=== PATIENT | female | born 1995 | race Caucasian/White ===

== ENCOUNTER 2024-12-14 08:54 | Emergency (ER) | payer BC, SELFPAY ==
[2024-12-14 09:01] VITALS: BP 125/85; PULSE 90; RESP 16; TEMP 36.6; O2SAT 100
--- OUTSIDE RECORDS SUMMARY | 2024-12-14 09:10 | XMS_ITS | Clinical Summary ---
Author Organization [facility] Address [address] [place] [address] Care Team Providers Care Subject Scientific Research Name Role Phone Cammy Green MRI SUPERVISOR-PLUMBING ENGINEERING DRAFTSPERSON Primary C are Provider Yenni Dey MRI SUPERVISOR-PLUMBING ENGINEERING DRAFTSPERSON Unavailable [phone] Source Comments [facility],non-owned Affiliates and Associated Physician Practices is amultiple site organization consisting of ambulatory clinics and hospital sitesin [place], [place], [place] and [place]. This disclosure is being madepursuant to the Care Everywhere program and may not contain all information available regarding this patient. Last updated 18.[facility] Allergies No known active allergies Medications * This document contains information received from the source organization and may not represent a complete record from that organization. * Be aware that medications may not be up to date on this document. Alwaysverify current medications with the patient. fluticasone propionate (Flonase) 50 MCG/ACT nasal sprayIndications :Nasal congestion [place] 2 (two) sprays into each nostril once daily 16 g 06/12/2022 Active escitalopram (Lexapro) 10 MG tabletIndication s:Anxiety and depression Take 1 (one) tablet by mouth once daily 90 tablet 1 06/02/2023 Active hydrOXYzine HCl (Atarax) 25 MG tabletIndication s:Anxiety and depression,Insom edwin, unspecified type Take 1 (one) tablet by mouth 3 times daily as needed (Anxiety) 90 tablet 06/02/2023 Active Active Problems Problem Noted Date Diagnosed Date Anxiety and depression 02/13/2023 Muscle spasm of back 02/13/2023 Family History Medical History Relation Name Comments Schizophrenia Father Diabetes; unknown type Maternal Grandfather Parkinson's Disease Maternal Grandfather CAD (Coronary Artery Disease) Maternal Grandmother Cancer - Breast Maternal Grandmother Diabetes - Type 2 Maternal Grandmother Diabetes; unknown type Maternal Grandmother Anxiety Disorder Mother Bipolar Disorder Mother Depression Mother Relation Name Status Comments Father Alive Maternal Grandfather Maternal Grandmother Mother Alive Social History Tobacco Use Types Packs/Day Years Used Date Smoking Tobacco: Former Cigarettes Smokeless Tobacco: Never Tobacco Cessation:Counseling Given: Not Answered Alcohol Use Standard Drinks/Week Comments Yes 0 (1 standard drink = 0.6 oz pur e alcohol) Rarely PHQ-2 Answer Date Recorded Patient Health Questionnaire-2 Score 2 06/02/2023 Comments No Sex and Gender Information Value Date Recorded Sex Assigned at Not on file Legal Sex Female 11:34 AM COMMUNICATIONS EQUIPMENT OPERATOR Gender Identity Female 05/15/2023 12:39 PM COMMUNICATIONS EQUIPMENT OPERATOR Sexual Orientation Bisexual 05/15/2023 12 :39 PM COMMUNICATIONS EQUIPMENT OPERATOR Last Filed Vital Signs Vital Sign Reading Time Taken Comments Blood Pressure 120/68 06/02/2023 3:37 PM COMMUNICATIONS EQUIPMENT OPERATOR Pulse 70 06/02/2023 3:37 PM COMMUNICATIONS EQUIPMENT OPERATOR Temperature 37 C (98.6 F) 06/02/2023 3:37 PM COMMUNICATIONS EQUIPMENT OPERATOR Respiratory Rate 20 06/02/2023 3:37 PM COMMUNICATIONS EQUIPMENT OPERATOR Oxygen Saturation 99% 06/02/2023 3:37 PM COMMUNICATIONS EQUIPMENT OPERATOR Inhaled Oxygen Concentration 96% 10/18/2021 1 0:25 AM CDT Weight 71.2 kg (157 lb) 06/02/2023 3:37 PM COMMUNICATIONS EQUIPMENT OPERATOR Height 147.3 cm (4' 10) 06/02/2023 3:37 PM COMMUNICATIONS EQUIPMENT OPERATOR Body Mass Index 32.81 06/02/2023 3:37 PM COMMUNICATIONS EQUIPMENT OPERATOR Plan of Treatment Health Maintenance Due Date Last Done Comments DTAP/TDAP/TD VACCINES (1 - Tdap) 2016 COVID-19 VACCINE ( season) 2024 DEPRESSION SCREENING 05/11/2024 06/02/2023, 03/09/2023, 02/13/2023, Additional history exists PAP SMEAR 05/14/2024 05/14/2021 (Done Outside Per Patient), 05/11/2021 (Done Outside Per Patient) HPV VACCINE (1 - 3-dose SCDM series) 2024 INFLUENZA VACCINE (#1) 2025 ZOSTER VACCINE (1 of 2) 10/05/2047 HEPATITIS B VACCINE Discontinued HEPATITIS C SCREENING Discontinued HIB VACCINE Aged Out No longer eligi ble based on patient's age to complete this topic HIV SCREENING Discontinued MENINGOCOCCAL (Group B) VACCINE SHARED DECISION-MAKING Aged Out No longer eligible based on patient's age to complete this topic MENINGOCOCCAL GROUPS A/C/Y/W VACCINE Aged Out No longer eligible based on patient's age to complete this topic PNEUMOCOCCAL VACCINE Aged Out No long er eligible based on patient's age to complete this topic Insurance [facility] MED[employer]ID [facility] MEDICAID MEDICAID MEDICAID Care Teams Subject Scientific Research Relationship Specialty Start Date End Date Cammy Green APRN-PLUMBING ENGINEERING DRAFTSPERSON [address] [id number] PCP - General Nurse Practitioner Family 03/09/23 Yenni Dey APRN-PLUMBING ENGINEERING DRAFTSPERSON [address] [place] [address] Nurse Practitioner Family 02/13/23
--- OUTSIDE RECORDS SUMMARY | 2024-12-14 09:10 | XMS_ITS | Clinical Summary ---
Author Organization [facility] Care Team Providers Care Mentally Impaired Teacher Name Role Phone Unavailable Primary Care Provider Unavailabl e Social History Tobacco Use Types Packs/Day Years Used Date Smoking Tobacco: Never Assessed Comments Unknown Sex and Gender Information Value Date Recorded Sex Assigned at Not on file Legal Sex Female 4:01 PM VEST BASTER Gender Identity Not on file Sexual Orientation Not on file Plan of Treatment Health Maintenance Due Date Last Done Comments Hepatitis C Virus (HCV) Screening 1997 TdaP Immunization 1997 Hepatitis B Immunization (1 of 3 - 19+ 3-dose series) 2016 SARS-COV-2 Immunization ( - season) 2024 Human Papillomavirus (HPV) Immunization (1 - 3-dose SCDM series) 2024 Influenza Immunization (#1) 2025 Respiratory Syncytial Virus (RSV) Immunization (Adult) (1 - 1-dose 75+ series) 2072 Meningococcal Immunization (ACWY) Aged Out No longer eligible based on patient's age to complete this topic Pneumococcal Immunization Combined Aged Out No longer eligible based on patient's age to complete this topic Rotavirus Immunization Aged Out No lo nger eligible based on patient's age to complete this topic
[2024-12-14 09:16] LABS: EDSTREPNEGPOS1 Negative (Negative)
--- NOTE | 2024-12-14 09:17 | ED_ITS ---
HPI - URI/Sore Throat General Chief Complaint: Upper Respiratory Infection Stated Complaint: Sore throat / Bilateral Ear Pain Time Seen by Provider: 12/14/24 08:59 Source: patient Mode of arrival: ambulatory Limitations: no limitations History of Present Illness HPI Narrative: Patient is a 29-year-old female who presents with 2 days of tonsil pain and swelling, primarily the right, sore throat and ear pain. Patient states she got multiple tonsil stones out this morning and her tonsils started bleeding. Has not taken anything for symptoms. Denies any fever, chills, nausea, vomiting, diarrhea. History of tubes in ears as child Related Data Allergies Allergy/AdvReac Type Severity Reaction Status Date / Time No Known Allergies Allergy Verified 12/14/24 09:07 Review of Systems Review of Systems: All systems reviewed & are unremarkable except as noted in HPI and below Constitutional: Constitutional: Denies chills, Denies fatigue, Denies fever(s), Denies headache(s), Denies malaise and Denies weakness Eyes: Eyes: Denies blurry vision, Denies itchy eyes and Denies loss of vision ENT: Reports otalgia, Denies headache(s), Denies nasal congestion, Denies sinus pain and Reports sore throat Cardiovascular: Cardiovascular: Denies chest pain, Denies irregular heart rhythm and Denies dyspnea Respiratory: Respiratory: Reports cough and Denies dyspnea Gastrointestinal: Gastrointestinal: Denies abdominal pain, Denies diarrhea, Denies nausea and Denies vomiting Musculoskeletal: Musculoskeletal: Denies back pain, Denies myalgias and Denies arthralgias Integumentary/Breasts: Skin/Breast: Denies pruritus and Denies rash Neurologic: Denies headache(s), Denies loss of vision and Denies weakness Psychiatric: Psychiatric: Reports no additional psychiatric complaints Endocrine: Endocrine: Denies fatigue Allergic/Immunologic: Allergic/Immunologic: Denies itchy eyes PMFSH Comments At time of signature, agree with nursing past medical, surgical, social and family history. There is no relevant family history pertinent to the presenting complaint. Exam Const: General: cooperative, healthy appearing, comfortable, no acute distress and well nourished Nutritional Appearance: well nourished Orientation/consciousness: patient oriented x3 Limitations: no limitations HENMT: Head: normal to inspection, normocephalic and atraumatic Ears: h earing grossly normal bilaterally, external ears normal, TM's normal bilaterally, EAC's normal and no periauricular adenopathy Face/Nose/Sinus: Normal external nose present, Abnormal mucous membranes and turbinates present erythematous bilateral and diffuse, normal facial exam, sinuses nontender and face symmetric Face and sinus: normal facial exam, sinuses nontender and face symmetric Mouth: Yes Normal oral and palatal mucosa present, Yes lip normal, Yes tongue normal, Yes Normal salivary glands and ducts present, Yes oropharynx normal and Yes moist mucous membranes Teeth and gingiva: dentition normal Throat: uvula midline, abnormal tonsil on the right (tonsil stone) and bilateral erythema and hypertrophy 1+, posterior oropharynx abnormal erythema and postnasal drainage Eyes: General: appearance normal, both eyes and all related structures Alignment and Position: alignment normal and position normal Periorbital: periorbital findings normal Eyelids: eyelids normal Pupils: Equal, round and reactive pupils present Neck: Neck: normal visual inspection, full ROM, no lymphadenopathy and supple Chest: Chest palpation & inspection: normal inspection of the chest and normal palpation of entire chest wall Resp: Effort & Inspection: normal respiratory effort and able to speak in complete sentences Auscultation: clear to auscultation bilaterally, no crackles, no rales, no rhonchi and no wheezes Cardio: Rate: regular rate Rhythm: regular rhythm Heart sounds: S1 normal heart sound present and S2 normal heart sound present GI: Inspection: normal to inspection Skin: General skin exam: normal color and no rashes or lesions noted Neuro: General: patient oriented x3 and moves all extremities Cranial nerves: Yes Equal, round and reactive pupils present Speech: normal speech Gait exam (Neuro): Normal gait present Extrem: General: normal to inspection, full ROM and no edema Psych: Appearance: grossly normal and well kempt Mental Status: mental status grossly normal Speech and movement: Normal speech and movement present Affect: normal affect Attitude: cooperative Thought process: Normal thought process present Course Course Emergency Course: Discharge instructions reviewed with patient, as well as provided in writing per nursing staff. The instructions also include specific and strict return/GO TO THE ER as well as f/u information. All questions have been answered, and the patient deny any further questions with discharge and discharge plan. Portions of this record may have been created with voice recognition software Level of Care: Express Care Visit Vital Signs Vital signs: Vital Signs Temperature 36.6 C 12/14/24 09:01 Pulse Rate 90 12/14/24 09:01 Respiratory Rate 16 12/14/24 09:01 Blood Pressure 125/85 12/14/24 09:01 Pulse Oximetry 100 12/14/24 09:01 Oxygen Delivery Room Air 12/14/24 09:01 Temperature 36.6 C 12/14/24 09:01 Pulse Rate 90 12/14/24 09:01 Respiratory Rate 16 12/14/24 09:01 Blood Pressure 125/85 12/14/24 09:01 Pulse Oximetry 100 12/14/24 09:01 Oxygen Delivery Room Air 12/14/24 09:01 Reviewed MDM - URI/Sore Throat MDM Narrative Medical decision making narrative: Pt well hydrated appearing, in no respiratory distress, hemodynamically stable. Recommend supportive care. The patient is stable at time of discharge the clinical impression was discussed and the patient was given the opportunity to ask questions, which were addressed as completely as possible given the information available at present. Anticipatory guidance and return to care precautions were discussed and the importance of primary care follow-up was stressed and encouraged. The patient voiced understanding of the plan, indications to return, and the need for follow-up. Exam findings show no acute concerns or changes Patient is appropriate for outpatient treatment and follow-up. Differential diagnosis considered: Win virus, strep pharyngitis, allergic rh initis, upper respiratory tract infection, sinusitis, rhinosinusitis, nasopharyngitis. viral pharyngitis, otitis media, otitis externa, otitis effusion, foreign body, cerumen impaction, viral syndrome, and influenza.? Medical Records Attestation: I reviewed the patient's medical records. Lab Data Attestation: I reviewed the patient's lab results. Labs: Lab Results 12/14/24 Range/Units 09:04 POC Grp A Strep Screen Negative (Negative) Discharge Plan Discharge Clinical Impression: Upper respiratory infection Qualifiers: URI type: unspecified viral URI Qualified Code(s): J06.9 - Acute upper respiratory infection, unspecified Patient Disposition: Home Condition: Stable Instructions: Upper Respiratory Infection (ED) Additional Instructions: Your rapid strep swab was negative today at [facility]. A throat culture will be sent to the laboratory for further testing. If the test is positive, you will receive a phone call within 48 hours and an appropriate antibiotic will be initiated at that time. Your symptoms are likely due to a viral illness, which is not treated with antibiotics. Viral symptoms can be present for up to a few weeks. -For pain/fever, you may take: Tylenol 650-1000mg by mouth every 4-6 hours. Do not exceed 4000mg in 24 hours. Advil (Ibuprofen) 600 mg by mouth every 6 hours. Do not exceed 2400mg in 24 hours. 8 AM: Tylenol 11 AM: Ibuprofen 2 PM: Tylenol 5 PM: Ibuprofen 8 PM: Tylenol 11 PM: Ibuprofen 2 AM: Tylenol 5 AM: Ibuprofen -Antihistamine medication such as Benadryl/Zyrtec at night and Claritin/Alexandra during the day can help improve symptoms. -Use Flonase twice a day for 5 days then daily to help reduce the inflammation and dry up your sinuses. -You can also use Sudafed behind the pharmacy counter(12 or 24 hour). Be sure to drink plenty of water with these medications at least 8 ounces with every dose and it is important to drink 8 to 10 glasses of water per day. Water is a natural decongestant -Eat and drink things that are easy to swallow, like tea or soup, or popsicles. -Oral rinses such as: Salt water gargles and/or may use topical anesthetic (eg. Chloraseptic spray) or lozenges to relieve dryness or throat pain). -Frequent hand washing or hand ironworker is one of the best ways to prevent spread of infection. -Using a vaporizer or humidifier at night will also help thin secretions and help with coughing up phlegm. Call your Primary Care Doctor and make a follow-up appointment in 3 days. If your cough worsens, you develop a fever greater than 103, you develop shaking chills, a fast heartbeat, trouble breathing and/or feel you are are breathing much faster than usual, call your Primary Care Doctor or go to the ER. Patient Language: Mongolian Prescriptions: New benzonatate 100 mg capsule 100 mg PO BID PRN (Reason: cough) Qty: 14 0RF fluticasone propionate [Flonase Allergy Relief] 50 mcg/actuation spray,suspension 1 spray intranasal DAILY Qty: 16 0RF Rx Instructions: administer into each nostril Follow-up/Referrals: Dimitry Boles MD [Primary Care Provider] - 3 Days Stand Alone Forms: Work/School Release IP Time of Disposition: 09:19
== END 2024-12-14 09:22 | disposition home or self-care (01) ==
PROVIDERS: Emergency Provider Nurse Practitioner Family; PCP Emergency Medicine
DX: J06.9 Acute upper respiratory infection, unspecified (principal)
CPT/HCPCS: 87081; 87880; 99203; G0463

== ENCOUNTER 2025-03-10 13:22 | Emergency (ER) | payer BC, SELFPAY ==
--- OUTSIDE RECORDS SUMMARY | 2025-03-10 13:25 | XMS_ITS | Data Portability ---
Author Organization [employer] , [facility] Address [address] [place] [address] Assessment No assessment recorded. Plan of Treatment Reminders Order Date Submit Date Provider Last Modified By Organization Details Last Modified Time Details Appointments None recorded. Lab bacterial vaginosis + vaginitis panel, vaginal 2024 025 [employer], [address] [place], [address], 5 16:30:54 test, urine 2023 024 [facility], [address] [place], [address], 4 11:00:47 HPV E6+E7 mRNA, qualitative PCR, cervix 2023 024 [employer] [facility] [employer] [facility], [address] [place], [address], 4 16:25:12 pap, LB 2023 024 [employer] [facility], [address] [place], [address], 4 15:56:04 prolactin, serum 2021 022 [employer] [facility], [address] [place], [address], 2 09:58:00 TSH, serum or plasma 2021 022 [employer] [facility], [address] [place], [address], 09:58:01 lh + FSH, serum [address] [facility], [address] [place], [address], 09:58:01 testosteron e, total, serum [address] [facility], [address] [place], [address], 09:58:02 testosteron e, free, serum [address] [facility], [address] [place], [address], 09:58:02 progesteron e, serum [address] [address] [facility], [address] [place], [address], 09:57:59 estradiol, serum [address] [facility], [address] [place], [address], 09:58:00 test, urine 2021 0 [facility], [address], [place], [address], 16:22:58 CT + NG DNA, PCR, unspecified specimen 2021 [facility], [address] [place] [address], [address], 09:20:49 unlisted lab - Pap reflex hold 2021 [facility], [address] [place] [address], [address], 2 09:20:45 pap, LB 2021 [facility], [address] [facility], [place], [address], 2 09:57:59 Referral reproductiv e endocrinolo gist referral 2023 024 [facility] Danis Means, [address] [facility], [address], [place], [address], 5 13:54:07 Procedures None recorded. Surgeries None recorded. Imaging US, transvagina l 2021 [facility], 1 [facility], [place], [address], 2 13:46:00 Medication Orders Xulane 150 mcg-35 mcg/24 hr transdermal patch 2024 025 [facility], [address] [place], [address], 5 15:22:22 Xulane 150 mcg-35 mcg/24 hr transdermal patch 2024 025 [facility], [address] [place], [address], 5 11:55:29 Xulane 150 mcg-35 mcg/24 hr transdermal patch 2023 024 [facility], [address] [place], [address], 4 11:00:53 Provera 10 mg tablet [id number] [place] [address] [id number], [address], [place], [id number], 5 11:29:46 Phexxi 1.8 %-1 %-0.4 % vaginal gel 2021 022 [email or web address] [id number], [address] [place], [id number], 11:29:55 Patient TargetsNo targets recorded. 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 Referral for Premature ovarian failure Referring Physician: Tracie Ochoa, INDEPENDENT V[employer]ODUCER, Encounter Date: 04/11/2024 Results Created Date Observation Date Name Description Value Unit Range Abnormal Flag Note LastModifiedBy Organization Detail LastModifiedTime 02/20/2002/19/2022 PAP REFLE X HOLD Pap reflex hold Merged to [id number] Not Available [facility] ol [address] [place], [address], 02/20/2022 09:20:45 02/20/2002/20/2022 PAP REFLE X HOLD Pap reflex hold Receiv ed receiv ed Not Available [facility] [address] [place], [address], 02/20/2022 09:20:49 02/20/2002/20/2022 CT/NG chlamydia trachomatis CT neg negati ve normal This repor t is inten ded for us in clini karen monit oring and manag ement of patie nts. It is not inten ded for use in medic al-le gal appli catio n. Not Available [facility] [address] [place], [address], 02/20/2022 13:39:00 02/20/2002/20/2022 CT/NG neisseria gonorrhoeae GC neg negati ve normal This repor t is inten ded for us in clini karen monit oring and manag ement of sanket nts. It is not inten ded for use in medic al-le gal appli catio n. Not Available [facility] [address] [place], [address], 02/20/2022 13:39:00 02/20/2002/27/2022 THINP REP TIS PAP clinical information: normal None given Not Available [place] [address] [address] [place], [address], 02/27/2022 09:57:59 02/20/2002/27/2022 THINP REP TIS PAP LMP: normal NONE GIVEN Not Available [address], [address], 02/27/2022 09:57:59 02/20/2002/27/2022 THINP REP TIS PAP prev. Pap: normal NONE GIVEN Not Available [address] [place], [address], 02/27/2022 09:57:59 02/20/2002/27/2022 THINP REP TIS PAP prev. BX: normal NONE GIVEN Not Available [address] [place], [address], 02/27/2022 09:57:59 02/20/2002/27/2022 THINP REP TIS PAP source: normal Cervi x Not Available [address] [place], [address], 02/27/2022 09:57:59 02/20/2002/27/2022 THINP REP TIS PAP statement of adequacy: normal Satis facto ry for evalu ation . Endoc ervic al/tr ansfo rmati on zone compo nent prese nt. 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 Sugge st clini karen corre latio n and follo w-up as clini naomi appro priat e Koo porti ons of this case have been revie wed by one or more patho logis ts. Not Available [address], [place], [address], 02/27/2022 09:57:59 02/20/2002/27/2022 THINP REP TIS PAP cytotechnolo gist: normal YQ, CT( CP) CT scree pranay locat ion: [place] [address] [address] [place] [address] Not Available [address] [address] [place], [address], 02/27/2022 09:57:59 02/20/2002/27/2022 THINP REP TIS PAP pathologist: normal Catina trujillo M.D., Board Certi fied in Anato easton Patho logy and Cytop athol ogy. Phone : [phone] (elec troni c signa ture) Not Available [address] [address] [place], [address], 02/27/2022 09:57:59 02/20/2002/27/2022 THINP REP TIS PAP comment EXPLA NATOR Y NOTE: The Pap is a scree pranay test for cervi karen cance r. It is not a diagn ostic test and is subje ct to false negat anastasia and false posit anastasia resul ts. It is most relia ble when a satis facto ry sampl e, regul jermain obtai jasper, is submi tted with relev ant clini karen findi ngs and histo ry, and when the Pap resul t is evalu ated along with histo eleanor and curre nt clini karen infor matio n. Not Available [address] [address] [place], [address], 02/27/2022 09:57:59 02/20/2002/27/2022 PROGE STERO NE progesterone TNP TEST NOT PERFO RMED No serum recei abdoulaye. Not Available [address] [address] [place], [address], 02/27/2022 09:57:59 02/20/2002/27/2022 PROLA CTIN prolactin TNP TEST NOT PERFO RMED No serum recei abdoulaye. Not Available [address] [address] [place], [address], 02/27/2022 09:58:00 02/20/2002/27/2022 ESTRA DIOL estradiol TNP TEST NOT PERFO RMED No serum recei abdoulaye. Not Available [address] [address] [place], [address], 02/27/2022 09:58:00 02/20/2002/27/2022 TSH W/REF CHARIS TO FT4 TSH w/reflex to FT4 TNP TEST NOT PERFO RMED No serum recei abdoulaye. Not Available [address] [address] [place], [address], 02/27/2022 09:58:01 02/20/20 22 02/27/2022 FSH AND LH FSH TNP TEST NOT PERFO RMED No serum recei abdoulaye. Not Available [address] [address] [place], [address], 02/27/2022 09:58:01 02/20/20 22 02/27/2022 FSH AND LH LH TNP TEST NOT PERFO RMED No serum recei abdoulaye. Not Available [facility] [place] [address] [address] [place], [address], 02/27/2022 09:58:01 02/20/2002/27/2022 TESTO STERO NE, FREE testosterone , free TNP TEST NOT PERFO RMED No serum recei abdoulaye. Not Available [facility] [address] [address] [place], [address], 02/27/2022 09:58:02 02/20/2002/27/2022 TESTO STERO NE, TOTAL , MS testosterone , total, MS TNP TEST NOT PERFO RMED No serum recei abdoulaye. Not Available [address] [address] [place], [address], 02/27/2022 09:58:02 02/20/20 22 02/19/2022 pregn chano test, urine HCG negati ve Not Available [address], [place], [address], 02/19/2022 11:16:03 03/10/20 22 03/12/2022 PROGE STERO NE progesterone <0.5 NG/mL normal Refer ence Range s Femal e Folli cular Phase < 1.0 Lutea l Phase 2.6-2 1.5 Post menop ausal < 0.5 Pregn chano 1st Trime ster 4.1-3 4.0 2nd Trime ster 24.0- 76.0 3rd Trime ster 52.0- 302.0 Not Available [facility] [address] [address] [place], [address], 03/12/2022 23:56:36 03/10/20 22 03/12/2022 PROLA CTIN prolactin 7.9 NG/mL normal Refer ence Range Femal es Non-p regna nt 3.0-3 0.0 Pregn ant 10.0- 209.0 Postm enopa usal 2.0-2 0.0 Not Available [facility] [address] [place], [address], 03/12/2022 23:56:37 03/10/20 22 03/12/2022 ESTRA DIOL estradiol <15 pg/mL normal Refer ence Range Folli cular Phase : 19-14 4 Mid-C ycle: 64-35 7 Lutea l Phase : 56-21 4 Postm enopa usal: < or = 31 Refer ence range estab lishe d on post- puber bernardo patie nt popul ation . No pre-p ubert al refer ence range estab lishe d using this assay . For any patie nts for whom low Estra diol level s are antic ipate d (e.g. males , pre-p ubert al child susi and hypog onada l/pos t-men opaus al femal es), the [facility] Juan ls Insti tute Estra diol, Ultra sensi tive, LCMSM S assay is recom melina d (orde r code 15890 ). Pleas e note: patie nts being treat ed with the drug fulve stran t (Fasl odex( R)) have demon strat ed signi fican t inter feren ce in immun oassa y metho ds for estra diol measu remen t. The cross react ivity could lead to false ly eleva joel estra diol test resul ts leadi ng to an inapp ropri ate clini karen asses sment of estro gen statu s. [facility] order code 14702 -Estr adiol , Ultra sensi tive LC/MS /MS demon strat es negli gible cross react ivity with fulve stran t. Not Available [facility] [address] [place], [address], 03/12/2022 23:56:37 03/10/20 22 03/12/2022 TSH W/REF CHARIS TO FT4 TSH w/reflex to FT4 0.81 mIU/L normal Refer ence Range > or = 20 Years 0.40- 4.50 Pregn chano Range s First trime ster 0.26- 2.66 Secon d trime ster 0.55- 2.73 Third trime ster 0.43- 2.91 Not Available [facility] [address] [place], [address], 03/12/2022 23:56:38 03/10/20 22 03/12/2022 FSH AND LH FSH 62.3 mIU/m L normal Refer ence Range Folli cular Phase 2.5-1 0.2 Mid-c ycle Peak 3.1-1 7.7 Lutea l Phase 1.5- 9.1 Postm enopa usal 23.0- 116.3 Not Available [facility] [address] [place], [address], 03/12/2022 23:56:38 03/10/20 22 03/12/2022 FSH AND LH LH 18.8 mIU/m L normal Refer ence Range Folli cular Phase 1.9-1 2.5 Mid-C ycle Peak 8.7-7 6.3 Lutea l Phase 0.5-1 6.9 Postm enopa usal 10.0- 54.7 Not Available [facility] [address] [place], [address], 03/12/2022 23:56:38 03/10/20 22 03/12/2022 TESTO STERO NE, FREE testosterone , free 3.6 pg/mL 0.2-5. 0 (Note ) The adair ntrat ion of free testo stero ne is deriv ed from a andreas leiva model using total testo stero ne by LCMSM S, sex hormo ne jose ng globu nabila and album in. This test was devel oped and its alexia tical perfo rmanc e sabrina cteri stics have been deter mined by [facility]. It has not been clear ed or appro abdoulaye by the FDA. This assay has been valid ated pursu ant to the CLIA regul ation s and is used for clini karen purpo ses. F med fusio n [address] [facility] [address] [place] [address] [phone] Manoj lockwood MD Not Available [facility] [address] [place], [address], 03/12/2022 23:56:38 03/10/20 22 03/12/2022 TESTO STERO NE, TOTAL , MS testosterone , total, MS 13 NG/dL 2-45 For addit ional yanivr jorgito downey refer to https ://ed ucati on.[employer]/f aq/To bernardoYang ramy thutimothy MS S (This link is being provi ded for infor ya nal/e ducat ional purpo ses only. ) (Note ) This test was devel oped and its alexia tical perfo rmanc e sabrina cteri stics have been deter mined by [employer] [facility]. It has not been clear ed or appro abdoulaye by the FDA. This assay has been valid ated pursu ant to the CLIA regul ation s and is used for clini karen purpo ses. ALEXIS med fusio n [address] [facility] [address] [place] [address] [phone] Manoj lockwood MD Not Available [facility] [address] [address], [place], [address], 03/12/2022 23:56:39 04/11/20 24 04/12/2024 HPV HIGH RISK HPV high risk Negati ve negati ve normal The HPV High Risk assay is inten ded for use as co-te sting with cytol ogy and not as a subst itute for regul ar cervi karen cytol ogy scree pranay. This assay is not inten ded for use as a scree pranay devic e for women under age 30 with catina l cervi karen cytol ogy. Not Available [facility] [address] [place], [address], 04/12/2024 16:25:12 04/11/20 24 04/19/2024 THINP REP TIS PAP clinical information: normal None given Not Available [address] [address] [place], [address], 04/19/2024 15:56:04 04/11/20 24 04/19/2024 THINP REP TIS PAP LMP: normal NONE GIVEN Not Available [address] [address] [place], [address], 04/19/2024 15:56:04 04/11/20 24 04/19/2024 THINP REP TIS PAP prev. Pap: normal NONE GIVEN Not Available [address] [place], [address], 04/19/2024 15:56:04 04/11/20 24 04/19/2024 THINP REP TIS PAP prev. BX: normal NONE GIVEN Not Available [address] [address] [place], [address], 04/19/2024 15:56:04 04/11/20 24 04/19/2024 THINP REP TIS PAP source: normal Cervi x Not Available [address] [address] [place], [address], 04/19/2024 15:56:04 04/11/20 24 04/19/2024 THINP REP TIS PAP statement of adequacy: normal SATIS FACTO RY FOR EVALU ATION Parti ally obscu ring infla mmati on Not Available [address] [address] [place], [address], 04/19/2024 15:56:04 04/11/20 24 04/19/2024 THINP REP TIS PAP interpretati on/result: Cytol ogy Resul ts: Negat anastasia for intra epith elial lesio n or jas bañuelos . Atrop amelie barkley rn; keyonao sabine baileyy parab carli cells Not Available [address] [address] [place], [address], 04/19/2024 15:56:04 04/11/20 24 04/19/2024 THINP REP TIS PAP comment: normal This Pap test has been evalu ated with compu ter stephen joel techn ology . Not Available [address] [address] [place], [address], 04/19/2024 15:56:04 04/11/2004/19/2024 THINP REP TIS PAP cytotechnolo gist: normal PCM, CT( CP) CT Scree pranay Locat ion: [place] [address] [address] [place] [address] Not Available [address] [address] [place], [address], 04/19/2024 15:56:04 04/11/20 24 04/19/2024 THINP REP TIS PAP comment EXPLA NATOR Y NOTE: The Pap is a scree pranay test for cervi karen cance r. It is not a diagn ostic test and is subje ct to false negat anastasia and false posit anastasia resul ts. It is most relia ble when a satis facto ry sampl e, regul jermain obtai jasper, is submi tted with relev ant clini karen findi ngs and histo ry, and when the Pap resul t is evalu ated along with histo eleanor and curre nt clini karen infor matio n. Not Available [address] [address] [place], [address], 04/19/2024 15:56:04 04/11/20 24 04/11/2024 pregn chano test, urine HCG negati ve Not Available [facility] [address] [facility], [place], [address], 04/10/2024 18:37:49 06/01/19 25 06/03/2024 VAGIN ITIS PANEL bacterial vaginosis BV neg negati ve normal Not Available [facility] [address] [place], [address], 06/03/2024 16:30:54 06/01/19 25 06/03/2024 VAGIN ITIS PANEL marjorie species C. spp POS negati ve abnormal Not Available [facility] [address] [place] [address], [address], 06/03/2024 16:30:54 06/01/19 25 06/03/2024 VAGIN ITIS PANEL marjorie glabrata C. gla neg negati ve normal Not Available [address], [address], 06/03/2024 16:30:54 06/01/19 25 06/03/2024 VAGIN ITIS PANEL trichomonas vaginalis CV/TV TRICH neg negati ve normal Not Available [address], [address], 06/03/2024 16:30:54 04/15/20 22 04/14/2022 US pelvi c non OB comp ta+TV [facility] [place] [address] [facility] [address] [place] [address] EXAMIN ATION: Comple te pelvic sonogr am (non-o bstetr ic) with transv aginal ultras ound DATE:06/15/19 CLINIC AL HISTOR Y: 26 years female with histor y of primar y amenor jacinta. Gravid a 1 Para 0 LMP= no menstr ual period in last 10 years. Urine pregna ncy test: Not availa ble COMPAR TIANNA: No prior exam TECHNI QUE: Ultras ound examin ation of the pelvis was perfor med utiliz ing transa bdomin al and transv aginal approa ch to assess graysc ivone appear ance, color dopple r flow, and spectr al wavefo rm charac terist ics. FINDIN GS: Uterus : 4.3 cm No masses . Anteve rted Endome trial stripe : 2 mm in thickn ess. Cervix : Normal . Right ovary: 1.7 cm. Normal echoge nicity . Normal blood flow and spectr al analys is. No masses or pathol ogic cysts. Left ovary: 1.9 cm. Normal echoge nicity . Normal blood flow and spectr al analys is. No masses or pathol ogic cysts. Other findin gs: No free fluid is seen within the pelvis . Visibl e bladde r not adequa tely disten ded. IMPRES CHERYL: 1. No pelvic abnorm alitie s observ ed. Ordere d By: SUNITA BERGERON Electr onical ly Signed By: Cuong Gómez MD on 9:36 AM Interp reted By: Cuong Gómez MD, 9:30 AM [email or web address], [address], 04/16/2022 12:06:26 04/15/2004/14/2022 US, trans vagin al No observ ation record ed. [email or web address] [address], [address], 04/16/2022 12:08:19 Result Notes None recorded. Problems No Known Problems Procedures Surgical History Date Name Laterality Status Provider Name and Address Organization Details Recorded Time Date of Last Pap Smear completed DAMARIS Gonzalez [address] [place], [address], [facility] 05/09/2024 08:35:21 Removal of tonsils completed Jacqueline Dorado [facility] [employer] [facility] 02/19/2022 11:02:00 procedure on external ear completed Justin Anderson [facility] 06/01/2024 11:32:13 Imaging Results None recorded. Procedure Notes None recorded. Medical Equipment None Reported. Allergies No known drug allergies Medications Name Sig Start Date Stop Date Status Note LastModified by Organization Details LastModified Time cyclobenz aprine 10 mg tablet TAKE 1 TABLET BY MOUTH THREE TIMES DAILY NEEDED FOR MUSCLE SPASMS 02/19 completed Not Available Not Available Not Available medroxypr ogesteron e 10 mg tablet TAKE 1 TABLET BY MOUTH EVERY DAY AT BEDTIME 06/01 completed Not Available Not Available Not Available trazodone 50 mg tablet TAKE 1 TABLET BY MOUTH ONCE DAILY AT BEDTIME FOR MOOD/SLE EP active Not Available Not Available No t Available azithromy ulices 250 mg tablet TAKE DIRECTED 04/11 completed Not Available Not Available Not Available ibuprofen 800 mg tablet TAKE 1 TABLET BY MOUTH EVERY 8 HOURS NEEDED FOR PAIN 02/19 completed Not Available Not Available Not Available fluconazo le 150 mg tablet TAKE 1 TABLET BY MOUTH ONCE DAILY active Not Available Not Available No t Available valacyclo vir 1 gram tablet 06/01 completed Not Available Not Available Not Available ondansetr on HCl 4 mg tablet 06/01 completed Not Available Not Available Not Available prednison e 20 mg tablet TAKE 2 TABLETS BY MOUTH EVERY DAY FOR 5 DAYS 02/19 completed Not Available Not Available Not Available sulfameth oxazole 800 mg-trimet hoprim 160 mg tablet TAKE 1 TABLET BY MOUTH EVERY 12 HOURS 04/11 completed Not Available Not Available Not Available lamotrigi ne 25 mg tablet 06/01 completed Not Available Not Available Not Available Vitamin tablet 02/07 completed Multivit blanca RxNorm: 0 Allow Substitu tion: True Refill Denied: No Refill DateOccu rred: 04/22/20 18 Not Available Not Available Not Available methocarb sonido 750 mg tablet TAKE 1 TABLET BY MOUTH 3 TIMES PER DAY NEEDED FOR PAIN AND MUSCLE SPASM 02/19 completed Not Available Not Available Not Available benzonata te 100 mg capsule TAKE 2 CAPSULES BY MOUTH EVERY 8 HOURS NEEDED 06/01 completed Not Available Not Available Not Available fluoxetin e 10 mg capsule TAKE 1 CAPSULE BY MOUTH EVERY DAY FOR MOOD/DEP RESSION/ ANXIETY 02/19 completed Not Available Not Available Not Available hydroxyzi ne HCl 25 mg tablet TAKE 1 TABLET BY MOUTH THREE TIMES DAILY NEEDED FOR ANXIETY 06/01 completed Not Available Not Available Not Available methylpre dnisolone 4 mg tablets in a dose pack 04/11 completed Not Available Not Available Not Available ondansetr on 4 mg disintegr ating tablet 04/11 completed Not Available Not Available Not Available fluoxetin e 20 mg capsule TAKE 1 CAPSULE BY MOUTH ONCE DAILY active Not Available Not Available No t Available fluticaso ne propionat e 50 mcg/actua tion nasal spray,[place] pension SHAKE LIQUID AND USE 1 SPRAY IN EACH NOSTRIL DAILY 02/19 completed Not Available Not Available Not Available naproxen 500 mg tablet 06/01 completed Not Available Not Available Not Available amoxicill in 875 mg-potass ium clavulana te 125 mg tablet 04/11 completed Not Available Not Available Not Available escitalop noah 10 mg tablet TAKE 1 TABLET BY MOUTH EVERY DAY 06/01 completed Not Available Not Available Not Available cyclobenz aprine 5 mg tablet TAKE 1 TABLET BY MOUTH THREE TIMES DAILY active Not Available Not Available No t Available Xulane 150 mcg-35 mcg/24 hr transderm al patch Apply 1 patch every week by transder mal route as directed . active Not Available Not Available No t Available Phexxi 1.8 %-1 %-0.4 % vaginal gel Insert 1 applicat orful by vaginal route. 06/01 completed Not Available Not Available Not Available Vitals Date Recorded Body height Body mass index (BMI) Body weight Systolic And Diastolic Provider Name and Address Organization Details Last Updated DateTime 06/01/2024 147.32 cm 30.8 kg/m2 43507.52 g 100/70 mm[Hg] Justin Anderson [facility] 06/01/2024 11:24:55 Date Recorded Body height Body mass index (BMI) Body weight Systolic And Diastolic Provider Name and Address Organization Details Last Updated DateTime 06/06/2024 147.32 cm 31.3 kg/m2 41659.86 g 120/76 mm[Hg] [facility] 06/06/2024 14:49:44 Date Recorded Body weight Body mass index (BMI) Body height Systolic And Diastolic Provider Name and Address Organization Details Last Updated DateTime 02/19/2022 [address] g 32.8 kg/m2 147.32 cm 118/74 mm[Hg] [facility] 02/19/2022 10:59:13 Date Recorded Body height Body mass index (BMI) Body weight Systolic And Diastolic Provider Name and Address Organization Details Last Updated DateTime 04/11/2024 147.32 cm 29.8 kg/m2 00800.99 g 118/72 mm[Hg] [facility] [employer] [facility] IV 04/11/2024 10:40:35 Date Recorded Body height Body mass index (BMI) Body weight Systolic And Diastolic Provider Name and Address Organization Details Last Updated DateTime 04/28/2022 147.32 cm 33 kg/m2 10229.59 g 116/68 mm[Hg] [facility] [employer] [facility] 04/28/2022 14:41:00 Social History Question Answer Notes LastModified by Organizat ion Details LastModified Time How Many Children Do You Have? 0 [email or web address] Information not available 02/19/2022 What Is Your Relationship Status? Single [email or web address] Information not available 02/19/2022 Are You Sexually Active? Yes [email or web address] Information not available 02/19/2022 Sex: Unknown Functional Status None recorded. Mental Status None recorded. Family History Relationship Description Onset Age of this Age Resolved Age Notes LastModified by Organization Details LastModified Time Maternal Grandmother Malignant neoplasm of breast Not available 02/19 11:01:35 Medical History Condition Response Other Cancer N High Blood Pressure N Colon Cancer N Cytomegalovirus N Hyperthyroidism N Herpes (HSV) N Breast Cancer N Blood Transfusion N MRSA Y Lung Cancer N Hypothyroidism N Depression Y Incontinence N Panic Attacks N Neurological Disorder N Deep Vein Thrombosis N Anxiety Disorder Y Autoimmune disease N Arthritis N Tuberculosis/Positive PPD N Shingles N Polycystic Ovarian Syndrome N Infertility N Cervical Cancer N Chlamydia N Hematuria N Stroke N Varicosities N Crohn's Disease N Seasonal allergies N Alzheimer's/Dementia N COPD/Emphysema N HPV/Genital Warts N Endometriosis N IBS (Irritable Bowel Syndrome) N History of Abnormal Pap N High Cholesterol Y Liver Disease N Kidney Infection N Fibromyalgia N Ulcer N Kidney Disease N HIV N Gallbladder disease N Sickle Cell Disease/Trait N Von Willebrand disease N ADD/ADHD N Eating Disorder N Anemia N Diabetes Mellitus (non-insulin dependent ) N Ovarian Problems N Multiple Sclerosis N Gonorrhea N Frequent Urinary Tract infections N Osteopenia N Headaches/migraines N GERD (reflux) N Ovarian Cancer N Diabetes (insulin dependent) N Seizures/Epilepsy N Breast Problems N Fibroids N Heart Attack N Asthma N Lupus N Endometrial Cancer N Rubella N Blood Clotting Disorder N Bipolar Disorder N Diabetes Mellitus (during ) N Ulcerative Colitis N Hepatitis N Heart Disease N Pulmonary Embolism N RPR N Chicken Pox N Osteoporosis N Gynecological History Statement/Question Response Flow Moderate Date of last HPV 04/11/2024 Date of LMP 06/02/2024 Duration of Flow (days) 5 Most Recent Mammogram Current Control Method Patch Age at Menarche 14 Date of Last Colonoscopy Most Recent Bone Density Frequency of Cycle (Q days) 28 Date of Last Pap Smear 04/11/2024 Obstetrics History GPAL:G 1 P 0 0 1 0 Type Value Spontaneous 1 Total 1 Past Encounters Encounter ID Performer Location Encounter Start Date Encounter Closed Date Diagnosis/Indication Diagnosis SNOMED-CT Code Diagnosis ICD10 Code Diagnosis IMO Codes Diagnosis Note [id number] DAMARIS Weiss [address] [address] 02/19/2022 10:55:17 02/19/2022 11:25:10 Gynecologic examination 55924639 Z01.419 26y.o. here for annual exam. - Pap today - Contracept anastasia counseling : Discussed options including OCPs, NuvaRing, Nexplanon, hormonal and copper IUDs. Discussed risks, benefits, and side effects of each option, including risk of VTE with hormonal contracept ion and uterine perforatio n with IUD. - Routine labs today - Depression screen NEG - BMI counseling , diet and exercise reviewed Screening for malignant neoplasm of cervix 320106623 Z12.4 Surveillan ce of contraception 758186997 Z30.40 She is agreeable to Phexxi use. She is aware only 93% effective and to use condoms in addition Amenorrhea 96196886 N91. 0 N91.1 Z32.00 Discussed amenorrhea in detail with patient. Provera rx'd. Instructed patient to call if no cycle 2 weeks after use. Will develop further plan of care depending on lab and ultrasound results. [id number] Rola Charles MD [address] [address] 04/28/2022 14:18:48 04/28/2022 15:06:40 Primary amenorrhea 792774676 N91.0 pt left without being seen, had family emergency. will need to reschedule [id number] Tracie Ochoa [facility] [address] [place] [address] 04/11/2024 10:27:17 04/11/2024 14:11:41 Premature ovarian failure 877459393 E28.39 [id number] Pt educated on dx and limitation of natural hormone production which would require interventi on for reproducti on and supplement ation of estrogen and progestero ne. Risks and Benefits of hormonal therapy use discussed. VICTORINO Referral recommende d to further discuss what interventi ons will be needed regarding family planning. Pt amenable to POC. Pt Case sent. Over 30 minutes spent in patient care and at least 50% of that time was in face to face counseling . Prescripti on of contraception 364880646 Z30.016 [id number] Pt educated on risks Vs benefits of use, and reviewed ACHES symptoms. Importance of following dosing schedule as directed reinforced to pt, and on use of condoms or abstinence if dosing schedule is interrupte d. Rx sent. Pt educated on importance of avoiding unprotecte d intercours e during first month of use. Plan to F/U PRN or at next [employer]. Screening for malignant neoplasm of cervix 171416636 Z12.4 ASCCP guidelines reviewed with pt. Pap collected and sent. Further POC pending lab result review. Pt states understand ing of POC. [id number] DAMARIS Gonzalez [facility] [address] [place] [address] 06/06/2024 14:45:53 06/06/2024 16:31:55 Premature ovarian failure 116542254 E28.39 [id number] Pt educated on dx and limitation of natural hormone production which would require interventi on for reproducti on and supplement ation of estrogen and progestero ne. Risks and Benefits of hormonal therapy use discussed. Discussed continuous usage of patch and the need for hormonal therapy due to ovarian failure. Reviewed bleeding precaution s and when to notify provider. VICTORINO Referral recommende d to further discuss what interventi ons will be needed regarding family planning. Pt amenable to POC. Pt Case sent. Over 30 minutes spent in patient care and at least 50% of that time was in face to face counseling . [id number] Mary Olvera-Porfirio is, [facility] [address] [place] [address] 06/01/2024 11:18:53 06/01/2024 12:17:50 Prescription of contraception 654412383 Z30.019 menorrhagi a discussed options for 12 vs 3 weeks of wearing patch. Desires to wear for 12 weeks and skip periods Vaginitis 90202337 N76.0 vaginal discharge for 2 days no itching or burning or foul odor Health Concerns Section Related Observation LastModified by Organization Detai ls LastModified Time None Recorded Concern Status LastModified by Organization Details LastModified Time None Recorded Advance Directives Directive None Recorded Payers Insurance Date Sequence Insurance Name Policy Number Policy Messer Covered Member ID Messer Member ID Guarantor Name 09/27/2024 1 [place] [facility] PRIOR TO 12/09/2024 (MEDICAID REPLACEMENT - HMO) [id number] Radha Tsai [id number] Radha Tsai Notes Date Note Type Note Provider Name and Address Organization Details Recorded Time 2 text/html AmenorrheaReported by Patient Annual GYNReported by PatientGenitourinary symptomsFor urinary symptoms, patient reportsno hematuriaandno incontinence. For vulva, patient reportsno genital lesion. For vagina, patient reportsnormal vaginal discharge. For menstrual cycle, (no menses in 10yrs).Breast symptomsFor breast, patient reportsno breast pain,no breast lump, andno nipple discharge.Endocrine symptomsFor sexual complaints, patient reportsno sexual complaints,no pain during intercourse, andnormal libido. For menopausal symptoms, patient reportsno menopausal symptomsandnormal vaginal lubrication.Psychological symptomsFor psychological symptoms, patient reportsno depression,no anxiety, andno pmdd.ROS as noted in the HPI Radha is a new patient here for her AEX. She hasn't had a cycle in 10yrs. She is sexually active. She is not using control. She was on the pill for a short period of time at the age of 15. She has never had an AEX/Pap. She is obese. She does have hirsutism. DAMARIS Weiss [address] [facility], [place], [address], [facility] [employer] 02/19/2022 16:23:45 2 text/html Radha is a 26 yr old G0 who is being evaluated for amenorrhea. (primary). She came into see Sunita and she gave a course of progesterone, she did not have bleeding.Labs were done: testosterone, FSH and LH, estradiol, progesterone, prolactin, TSH Pap abnormal on 02/19/2022 ANGIE Charles MD [address] [facility], [place], [address], [facility] [employer] 04/28/2022 15:38:37 4 text/html ROS as noted in the HPI Pt presents to office for c/o amenorrhea. Pt notes menarche at 14 years old, and was on OCP's for a short time. Pt was seen in 2021 and stated hadn't had a menstrual cycle in 10 years. Pt had serum testing drawn at that time and failed Provera challenge. Lab results showed normal Testosterone, Prolactin, and TSH, but elevated FSH 62.3/LH 18.8. Pt attempted to F/U with Dr. Charles, but left appt without being seen. Since that time pt has been seen by PCP and has had more recent imaging. TVUS in 03/2024 reveals normal uterus and bilat ovaries, endometrial lining measuring 0.3 cm. Pt referred back to us for management of premature ovarian failure. Last Pap: 02/2022 [facility]. Pt has not F/U with any other provider for repeat pap smear. Pt does desire having children in the future, but doesn't want to become within the next year. Pt has no other concerns. DAMARIS Gonzalez [address] [facility], [place], [address], [facility] [employer] 04/11/2024 13:22:13 5 text/html Radha is a 28 yr old female. Pt LMP 05/13/24. Pt had pap done in 2023. Pt states she has not had a period since 2013, has been diagnosed with premature ovarian failure. Pt states she in a lot of pain since yesterday. Pt has low cramping. Pt states her vagina was cramping. Pt took off her patch on Thursday. Pt needs refill on patches. Mary Apodaca CNM [address] [facility], [place], [address], [facility] [employer] 06/01/2024 11:55:58 5 text/html Pt presents with c/o AUB following initiation of Xulane for a previous dx of Premature Ovarian Failure. At pt's last visit on 04/11/24, pt had c/o amenorrhea; no menstrual cycle in 10 years. Serum testing in 2021 revealed normal Testosterone, Prolactin, and TSH, but elevated FSH 62.3/LH 18.8 following a failed progesterone challenge. Most recent TVUS imaging, ordered by PCP, done in 03/2024 showed normal uterus and bilat ovaries, endometrial lining measuring 0.3 cm. Pt referred back to us for management of premature ovarian failure. Pt was started on Xulane patch for estrogen replacement. Since that time she has experienced heavy bleeding with passage of clots. Pt was seen at Urgent Care. Pt recent period was heavy with clots but better than cycle in april. She is currently on her period day 4. Changing pads 4-5 times a day. Last Pap: 04/2024 NILM, HPV neg. Pt does desire having children in the future, but doesn't want to become within the next year. Pt has no other concerns. DAMARIS Gonzalez [address] [facility], [place], [address], [facility] [employer] 06/06/2024 15:26:10 OBGyn Episode Ob Episode Information Episode Created Date Number of Fetuses Patient Bloodtype Patient rh Status Prepregnancy Weight lbs Domestic Partner Domestic Partner Phone Father Name Casting Assistant Status 06/01/19 25 1 CLOSED Fetus Data First Name Last Name Admitted to NICU Weight (g) Sex Living Outcome Pediatric Complications Fetus ID Race Codes Race Delivery Type , Spontane ous [id number] Suleiman Calculation Initial Suleiman Date Initial Exam Date Initial Exam Provider Initial Ultrasound Date Last Menstrual Period Date Ultra Sound Weeks Gestation 0 Eighteen To Twenty Week Suleiman Update Ultra Sound Date Fundal Height At Umbil Quickening Date Ultra Sound Latest Weeks Gestation Final Suleiman Confirmed By Final Suleiman Confirmed Date Final Suleiman Date Ultra Sound Latest Days Gestation 0 0 Menstrual History Last Menstrual Date Menses Monthly On Bcp Conception Prior Menses Frequency Hcg Plus Date Menarche Onset Age Delivery Information Delivery Date Delivery Type Labor Anesthesia Weeks Gestation Incision Type Labor Labor Length Hrs Delivered By Post Complications Tubal Sterilization Discharge Date Comments 8 Discharge Information Feeding Method Contraceptive Method Maternal HG B and HCT Levels
--- OUTSIDE RECORDS SUMMARY | 2025-03-10 13:25 | XMS_ITS | Clinical Summary ---
Author Organization [facility] Address [facility] [place] [address] Care Team Providers Care Environmental Services Coordinator Name Role Phone Dimitry Boles MD Primary Care Provider [phone] Allergies No known active allergies Medications cetirizine (ZYRTEC) 10 MG tablet Take 1 tablet (10 mg total) by mouth daily. Active dextromethorpha n-guaiFENesin ER (MUCINEX DM) 30-600 MG TABLET SR 12 HR 12 hr tablet Take 1 tablet by mouth every 12 (twelve) hours as needed. 28 tablet 02/07/2024 Active methylPREDNISol one, OTF, (MEDROL DOSEPAK) 4 MG tablet Take 1 tablet (4 mg total) by mouth daily. 6 TABLETS ON DAY ONE, 5 TABLETS DAY TWO, 4 TABLETS DAY THREE, 3 TABLETS DAY FOUR, 2 TABLETS DAY FIVE, AND 1 TABLET DAY SIX 1 each 02/07/2024 Active Family History Medical History Relation Comments schizophrenia Father Hypertension Mother Relation Status Comments Father Alive Mother Alive Social History Tobacco Use Types Packs/Day Years Used Date Smoking Tobacco: Every Day Cigarettes Smokeless Tobacco: Never Alcohol Use Standard Drinks/Week Comments Not Currently 0 (1 standard drink = 0.6 oz pur e alcohol) rarely Comments No Sex and Gender Information Value Date Recorded Sex Assigned at Not on file Legal Sex Female 7:13 PM CDT Gender Identity Not on file Sexual Orientation Not on file Last Filed Vital Signs Vital Sign Reading Time Taken Comments Blood Pressure 113/73 02/07/2024 8:51 AM CDT Pulse 88 02/07/2024 8:51 AM CDT Temperature 36.4 C (97.5 F) 02/07/2024 8:51 AM CDT Respiratory Rate 16 02/07/2024 8:51 AM CDT Oxygen Saturation 99% 02/07/2024 8:51 AM CDT Inhaled Oxygen Concentration - - Weight 59 kg (130 lb) 02/07/2024 8:51 AM CDT Height 147.3 cm (4' 10) 02/07/2024 8:51 AM CDT Body Mass Index 27.17 02/07/2024 8:51 AM CDT Plan of Treatment Health Maintenance Due Date Last Done Comments Cervical Cancer Screening Pa p Smear (Age 21 to 29) Every 3 Years 1997 Cervical Cancer Screening 1997 Annual Physical 2000 Hepatitis C 10/05/2015 DTaP, Tdap and Td Vaccines ( 1 - Tdap) 2016 Hepatitis B Vaccines (1 of 3 - 19+ 3-dose series) 2016 Pneumococcal Vaccine: Pediat rics (0 to 5 Years) and At-Risk Patients (6 to 49 Years) (1 of 2 - PCV) 2016 HPV Vaccines (1 - 3-dose SCD M series) 2024 COVID-19 Vaccine (1 - 2024-2 6 season) 2025 Influenza Adult (#1) 2025 Hepatitis A Vaccines Aged Out No long er eligible based on patient's age to complete this topic Meningococcal B Vaccine Aged Out No l onger eligible based on patient's age to complete this topic Meningococcal Vaccine Aged Out No kyle rl eligible based on patient's age to complete this topic RSV Immunizations Under 20 Months Aged Out No longer eligible based on patient's age to complete this topic Additional Health Concerns Infection Onset Date Last Indicated MRSA Comment:03/09/24 +MRSA Nares 03/09/2024 03/09/2024 Insurance [facility] MEDICAID Care Teams Environmental Services Coordinator Relationship Specialty Start Date End Date Dimitry Boles MD [address] [place] [address] PCP - General FAMILY PRACTICE 03/09/24
--- OUTSIDE RECORDS SUMMARY | 2025-03-10 13:25 | XMS_ITS | Clinical Summary ---
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
--- OUTSIDE RECORDS SUMMARY | 2025-03-10 13:25 | XMS_ITS | Clinical Summary ---
Author Organization [facility] Address [address] [facility] [place] [address] Care Team Providers Care Flight Communications Specialist Name Role Phone Cammy Green ELEMENTARY READING SPECIALIST-SOUND CUTTER Primary C are Provider Yenni Dey ELEMENTARY READING SPECIALIST-SOUND CUTTER Unavailable [phone] Source Comments [facility],non-owned Affiliates and Associated Physician Practices is amultiple site organization consisting of ambulatory clinics and hospital sitesin [place], [place], [place] and [place]. This disclosure is being madepursuant to the Care Everywhere program and may not contain all information available regarding this patient. Last updated 18.[facility] Allergies No known active allergies Medications * This document contains information received from the source organization and may not represent a complete record from that organization. * Be aware that medications may not be up to date on this document. Alwaysverify current medications with the patient. fluticasone propionate (Flonase) 50 MCG/ACT nasal sprayIndications :Nasal congestion [place] 2 (two) sprays into each nostril once [...] on file Legal Sex Female 11:34 AM EDI SPECIALIST Gender Identity Female 05/15/2023 12:39 PM EDI SPECIALIST Sexual Orientation Bisexual 05/15/2023 12 :39 PM EDI SPECIALIST Last Filed Vital Signs Vital Sign Reading Time Taken Comments Blood Pressure 120/68 06/02/2023 3:37 PM EDI SPECIALIST Pulse 70 06/02/2023 3:37 PM EDI SPECIALIST Temperature 37 C (98.6 F) 06/02/2023 3:37 PM EDI SPECIALIST Respiratory Rate 20 06/02/2023 3:37 PM EDI SPECIALIST Oxygen Saturation 99% 06/02/2023 3:37 PM EDI SPECIALIST Inhaled Oxygen Concentration 96% 10/18/2021 1 0:25 AM CDT Weight 71.2 kg (157 lb) 06/02/2023 3:37 PM EDI SPECIALIST Height 147.3 cm (4' 10) 06/02/2023 3:37 PM EDI SPECIALIST Body Mass Index 32.81 06/02/2023 3:37 PM EDI SPECIALIST Plan of Treatment Health Maintenance Due Date Last Done Comments DTAP/TDAP/TD VACCINES (1 - Tdap) 2016 DEPRESSION SCREENING 05/11/2024 06/02/2023, 03/09/2023, 02/13/2023, Additional history exists PAP SMEAR 05/14/2024 05/14/2021 (Done Outside Per Patient), 05/11/2021 (Done Outside Per Patient) HPV VACCINE (1 - 3-dose SCDM series) 2024 COVID-19 VACCINE ( season) 2025 INFLUENZA VACCINE (#1) 2025 ZOSTER VACCINE (1 [...] patient's age to complete this topic Insurance [id number] MEDICAID MEDICAID Care Teams Flight Communications Specialist Relationship Specialty Start Date End Date Cammy Green APRN-SOUND CUTTER [address] [address] PCP - General Nurse Practitioner Family 03/09/23 Yenni Dey APRN-CNP [address] [place] [address] Nurse Practitioner Family 02/13/23
[2025-03-10 13:51] VITALS: BP 127/83; PULSE 92; RESP 18; TEMP 35.9; O2SAT 99
[2025-03-10 13:52] LABS: EDSTREPNEGPOS1 Negative (Negative)
--- NOTE | 2025-03-10 14:15 | ED_ITS ---
HPI - URI/Sore Throat General Chief Complaint: Upper Respiratory Infection Stated Complaint: sore throat Time Seen by Provider: 03/10/25 13:50 Source: patient and RN notes reviewed Mode of arrival: ambulatory Limitations: no limitations History of Present Illness HPI Narrative: 29-year-old female presents to the [facility] complaining of upper respiratory symptoms for approximately 5 days. Patient reports cough, congestion, sore throat, sinus pressure, mucopurulent nasal drainage, tactile fevers. Patient she started feeling better 2 days ago however walk up today with worsening symptoms, worsening congestion, sore throat, and cough. Patient also reports nausea and vomiting with coughing episodes. Patient's bili keep fluids and water down after vomiting. Patient denies any abdominal pain, with chest pain, shortness of breath, or any other symptoms. Patient taken ago sets-[id number]-[id number] cold/flu medications the relief. Related Data Home Medications ?Medication ?Instructions ?Recorded ?Confirmed ?Last Taken ?Type norelgestromin 150 mcg-e.estradiol patch 03/10/25 Unk nown History 35 mcg/24 hr weekly transderm patch (Zafemy) Allergies Allergy/AdvReac Type Severity Reaction Status Date / Time No Known Allergies Allergy Verified 03/10/25 13:28 Review of Systems Review of Systems: CONSTITUTIONAL: Positive for tactile fevers. Negative for chills, body aches, or sweats. EYES: Denies visual changes, redness, or discharge. ENT: Positive for sinus pressure, congestion, sore throat. Negative for rhinorrhea or otalgia. CARDIOVASCULAR: Denies chest pain, palpitations, or edema. RESPIRATORY: Positive for cough. Negative for dyspnea or wheezing. GASTROINTESTINAL: Denies abdominal pain, or diarrhea. Positive for nausea vomiting. GENITOURINARY: Denies dysuria or hematuria. SKIN: Denies rash or itching. MUSCULOSKELETAL: Denies back pain, joint pain, or myalgia. NEUROLOGIC: Denies headache, numbness, or weakness. PSYCHIATRIC: Denies anxiety or depression. All other systems reviewed are negative, except as documented in HPI. PMFSH Comments At the time of my signature, I reviewed and agree with the nursing past medical, surgical, social, and family history. There is no relevant family history pertinent to the patient complaint. Exam Narrative: GENERAL: This is a well-nourished, well-developed adult, in no apparent distress. They are non ill-appearing, nontoxic appearing. HEAD: normocephalic, atraumatic. EYES: Sclera clear/white. Vision is grossly intact. Conjunctiva normal bilaterally. Extraocular movements intact. EARS: External ears normal, auditory canals clear and without drainage, TMs without erythema or perforation. Hearing grossly intact. NOSE: External nose normal with no obvious nasal discharge, nasal turbinates erythematous with exudate, no rhinorrhea. Maxillary and frontal sinus tend erness to palpation. THROAT: Mucous membranes moist, posterior pharynx erythematous without exudate. Uvula is midline. Postnasal drip present. NECK: Neck supple, non-tender without lymphadenopathy, masses or thyromegaly. CARDIOVASCULAR: Regular rate and rhythm without murmurs, gallops, or rubs. RESPIRATORY: Clear to auscultation. Breath sounds equal bilaterally. No wheezes, rales, or rhonchi. SKIN: warm, Dry, intact with no suspicious lesions or rash, good texture and turgor. NEURO: awake, alert, and oriented to person, place and time. There were no obvious focal neurologic abnormalities. EXTREMITIES: No joint tenderness, effusion, or edema noted. BACK: Nontender without deformity. Course Course Emergency Course: Portions of this record may have been created with voice recognition software Level of Care: Express Care Visit Vital Signs Vital signs: Vital Signs Temperature 96.6 F L 03/10/25 13:51 Pulse Rate 92 03/10/25 13:51 Respiratory Rate 18 03/10/25 13:51 Blood Pressure 127/83 03/10/25 13:51 Pulse Oximetry 99 03/10/25 13:51 Oxygen Delivery Room Air 03/10/25 13:51 Temperature 96.6 F L 03/10/25 13:51 Pulse Rate 92 03/10/25 13:51 Respiratory Rate 18 03/10/25 13:51 Blood Pressure 127/83 03/10/25 13:51 Pulse Oximetry 99 03/10/25 13:51 Oxygen Delivery Room Air 03/10/25 13:51 MDM - URI/Sore Throat MDM Narrative Medical decision making narrative: Rapid strep negative. Throat culture is pending. Given patient's waxing and waning worsening symptoms will go ahead and treat her for bacterial sinus infection. Will treat her with Augmentin. Given patient's vomiting will also prescribe Zofran as needed for nausea vomiting. Mucous membranes are moist. Patient is not appear clinically dehydrated. No tachycardia. Patient vital signs hemodynamically stable, she is nontoxic appearing, no apparent distress. Discussed physical exam findings. Advised supportive measures and signs/symptoms to go to the ER. Pt is appropriate for outpt treatment and f/u. Differential Diagnosis Differential diagnosis: Likely upper respiratory infection, sinusitis, viral infection, pharyngitis and other (Gastroenteritis) Lab Data Attestation: I reviewed the patient's lab results. Labs: Lab Results 03/10/25 Range/Units 13:50 POC Grp A Strep Screen Negative (Negative) Discharge Plan Discharge Clinical Impression: Sinusitis Qualifiers: Sinusitis location: unspecified location Chronicity: acute Recurrence: non-rec urrent Qualified Code(s): J01.90 - Acute sinusitis, unspecified Patient Disposition: Home Condition: Stable Instructions: Antibiotic Form, Sinusitis (ED) Additional Instructions: Rapid strep is negative. Throat culture will be sent off and if it is positive you will be contacted. Take the antibiotics as directed and complete the course even if you start to feel better. You may use a Neti pot saline rinse 3 times a day with lukewarm distilled water Continue to take Tylenol or Motrin as needed for pain or fevers. Use a humidifier or vaporizer at night. Drink plenty of water. 8-10 glasses per day. Take Zofran as needed for nausea and vomiting. Use flonase 2 times per day for 5 days then as needed Take mucinex 2 times per day and be sure to take with 8oz of water. Follow up with Primary provider in 3-5 days Please go to the ER if he develops any difficulty breathing, chest pain, uncontrolled nausea vomiting, abdominal pain, worsening symptoms, or any other concerns Patient Language: Albanian Prescriptions: New ondansetron 4 mg tablet,disintegrating 4 mg PO Q8H PRN (Reason: nausea and vomiting) Qty: 12 0RF amoxicillin-pot clavulanate 875-125 mg tablet 1 tablet PO Q12H 7 Days Qty: 14 0RF No Action norelgestromin-ethin.estradiol [Zafemy] 150-35 mcg/24 hr patch weekly Follow-up/Referrals: Dimitry Boles MD [Primary Care Provider, Family Practice] Stand Alone Forms: Work/School Release IP Time of Disposition: 14:02
== END 2025-03-10 14:03 | disposition home or self-care (01) ==
PROVIDERS: PCP Emergency Medicine
DX: J01.90 Acute sinusitis, unspecified (principal)
CPT/HCPCS: 87081; 87880; 99213; G0463

== ENCOUNTER 2025-05-01 13:01 | Emergency (ER) | payer MEDICAID, SELFPAY ==
[2025-05-01 13:17] VITALS: BP 129/79; PULSE 100; RESP 18; TEMP 36.6; O2SAT 100
--- NOTE | 2025-05-01 13:19 | ED_ITS ---
HPI - URI/Sore Throat General Chief Complaint: Upper Respiratory Infection Stated Complaint: strep Source: patient Mode of arrival: ambulatory Limitations: no limitations History of Present Illness HPI Narrative: This is a 29 y/o female that presents to the urgent care for complaint of sore throat since yesterday. patient states she noticed a scratchy throat last pm that just kept getting worse. this am she reports a fever of 99 and her throat looks smaller and weird, it freaked me out. patient states she is able to eat and drink. No known contacts. MD elicited complaint: fever and sore throat Onset (ago): day(s) (2) Consistency: constant Severity: mild Exacerbating factors: nothing Relieving factors: nothing Context: sick contacts Associated symptoms: denies other symptoms Treatments prior to arrival: none Related Data Home Medications ?Medication ?Instructions ?Recorded ?Confirmed ?Last Taken ?Type norelgestromin 150 mcg-e.estradiol patch 03/10/25 Unk nown History 35 mcg/24 hr weekly transderm patch (Zafemy) Allergies Allergy/AdvReac Type Severity Reaction Status Date / Time No Known Allergies Allergy Verified 05/01/25 13:05 Review of Systems Review of Systems: All systems reviewed & are unremarkable except as noted in HPI and below Exam Const: General: healthy appearing Nutritional Appearance: well nourished Orientation/consciousness: patient oriented x3 Limitations: no limitations HENMT: Head: normal to inspection, normocephalic and atraumatic Ears: hearing grossly normal bilaterally and external ears normal Face/Nose/Sinus: Normal external nose present, Normal nares present and No nasal polyps present Face and sinus: normal facial exam, sinuses nontender and face symmetric Mouth: Yes Normal oral and palatal mucosa present, Yes lip normal, Yes tongue normal and Yes Normal salivary glands and ducts present Throat: uvula midline, posterior oropharynx abnormal erythema and exudates and tonsils absent ( history of tonsillectomy and adenoidectomy) Eyes: Conjunctivae: conjunctivae normal Pupils: Equal, round and reactive pupils present EOM: EOMs intact bilaterally Neck: Neck: normal visual inspection and no lymphadenopathy Resp: Effort & Inspection: normal respiratory effort Auscultation: clear to auscultation bilaterally Cardio: Rate: regular rate Rhythm: regular rhythm GI: GI Palp: Yes Soft to palpation Auscultation: normal bowel sounds Back/Spine/Pelvis: Back: no CVA tenderness Skin: General skin exam: normal color Rashes: no rashes Wounds: no wounds Neuro: General: patient oriented x3 Cranial nerves: Yes Nystagmus not present Speech: normal speech Gait exam (Neuro): Normal gait present Extrem: General: normal to inspection and no clubbing, cyanosis or edema Psych: Mental Status: mental status grossly normal Affect: normal affect Attitude: cooperative Course Course Emergency Course: This is a 29 y/o female that presents to the urgent care for complaint of sore throat since yesterday. patient states she noticed a scratchy throat last pm that just kept getting worse. this am she reports a fever of 99 and her throat looks smaller and weird, it freaked me out. patient states she is able to eat and drink. No known contacts. vital signs stable patient denies any other symptom or distress. rapid strep ordered and positive. discussed with patient her results and treatment. patient verbalized understanding. educated patient to Increase fluids, rest, continue with symptomatic management: - cough drops for sore throat and cough, - tylenol or motirn for fever and pain, Continue with prednisone as prescribed. continue with Antibiotic as prescribed, follow up with primary MD in the next 2-3 days for further evaluation and exam, return to the emergency department any worrisome signs or symptoms. patient denies any further needs or concerns addressed prior to discharge, internal questions to her satisfaction. Level of Care: Express Care Visit Vital Signs Vital signs: Vital Signs Temperature 97.8 F 05/01/25 13:17 Pulse Rate 100 05/01/25 13:17 Respiratory Rate 18 05/01/25 13:17 Blood Pressure 129/79 05/01/25 13:17 Pulse Oximetry 100 05/01/25 13:17 Oxygen Delivery Room Air 05/01/25 13:17 Temperature 97.8 F 05/01/25 13:17 Pulse Rate 100 05/01/25 13:17 Respiratory Rate 18 05/01/25 13:17 Blood Pressure 129/79 05/01/25 13:17 Pulse Oximetry 100 05/01/25 13:17 Oxygen Delivery Room Air 05/01/25 13:17 MDM MDM Narrative Medical decision making narrative: This is a 29 y/o female that presents to the urgent care for complaint of sore throat since yesterday. patient states she noticed a scratchy throat last pm t hat just kept getting worse. this am she reports a fever of 99 and her throat looks smaller and weird, it freaked me out. patient states she is able to eat and drink. No known contacts. vital signs stable patient denies any other symptom or distress. rapid strep ordered and positive. discussed with patient her results and treatment. patient verbalized understanding. educated patient to Increase fluids, rest, continue with symptomatic management: - cough drops for sore throat and cough, - tylenol or motirn for fever and pain, Continue with prednisone as prescribed. continue with Antibiotic as prescribed, follow up with primary MD in the next 2-3 days for further evaluation and exam, return to the emergency department any worrisome signs or symptoms. patient denies any further needs or concerns addressed prior to discharge, internal questions to her satisfaction. Differential Diagnosis Differential Diagnosis: viral syndrome, strep a, pharyngitis Medical Records I have reviewed the following patient records and this information was taken into consideration when formulating the assessment and plan.: previous labs Lab Data MDM Lab Attestation statement: I personally reviewed the patient's lab results. Lab results narrative: strep A positive Discharge Plan Discharge Clinical Impression: Strep pharyngitis Patient Disposition: Home Condition: Stable Instructions: Antibiotic Form, Strep Throat (ED) Additional Instructions: Increase fluids, rest, continue with symptomatic management: - cough drops for sore throat and cough - tylenol or motirn for fever and pain, Continue with prednisone as prescribed. continue with Antibiotic as prescribed follow up with primary MD in the next 2-3 days for further evaluation and exam, return to the emergency department any worrisome signs or symptoms. Patient Language: Cook Islander Prescriptions: New amoxicillin-pot clavulanate 875-125 mg tablet 1 tablet PO Q12H Qty: 14 0RF prednisone 10 mg tablet 10 mg PO BID Qty: 10 0RF No Action norelgestromin-ethin.estradiol [Zafemy] 150-35 mcg/24 hr patch weekly Follow-up/Referrals: Dimitry Boles MD [Primary Care Provider, Family Practice] Stand Alone Forms: Work/School Release IP Time of Disposition: 13:29
[2025-05-01 13:36] LABS: EDSTREPNEGPOS1 Positive (Negative)
--- OUTSIDE RECORDS SUMMARY | 2025-05-01 14:44 | XMS_ITS | Clinical Summary ---
Author Organization [facility] Address [facility] [place] [address] Care Team Providers Care Torch Shearer Name Role Phone Dimitry Boles MD Primary Care Provider [phone] Allergies No known active allergies Medications cetirizine [...] MRSA Comment:03/09/24 +MRSA Nares 03/09/2024 03/09/2024 Insurance [facility] MEDICAID Care Teams Torch Shearer Relationship Specialty Start Date End Date Dimitry Boles MD [address] [place] [address] PCP - General FAMILY PRACTICE 03/09/24
--- OUTSIDE RECORDS SUMMARY | 2025-05-01 14:44 | XMS_ITS | Clinical Summary ---
Author Organization [facility] Care Team Providers Care Cocoa Bean Cleaner Name Role Phone Unavailable Primary Care Provider Unavailabl e Social History Tobacco Use Types Packs/Day Years Used Date Smoking Tobacco: Never Assessed Comments Unknown Sex and Gender Information Value Date Recorded Sex Assigned at Not on file Legal Sex Female 4:01 PM CRM CONSULTANT Gender Identity Not on file Sexual Orientation [...]
--- OUTSIDE RECORDS SUMMARY | 2025-05-01 14:44 | XMS_ITS | Clinical Summary ---
Author Organization [facility] Address [address] [address] Care Team Providers Care Communications Attendant Name Role Phone Cammy Green CURING MACHINE OPERATOR-BUSINESS INTELLIGENCE DIRECTOR Primary C are Provider Yenni Dey CURING MACHINE OPERATOR-BUSINESS INTELLIGENCE DIRECTOR Unavailable [phone] Source Comments [facility],non-owned Affiliates and Associated Physician Practices is amultiple site organization consisting of ambulatory clinics and hospital sitesin [place], [place], [place] and [place]. This disclosure is being madepursuant to the Care Everywhere program and may not contain all information available regarding this patient. Last updated 18.[facility] Allergies No known active allergies Medications * This document contains information received from the source organization and may not represent a complete record from that organization. * Be aware that medications may not be up to date on this document. Alwaysverify current medications with the patient. fluticasone propionate (Flonase) 50 MCG/ACT nasal sprayIndications :Nasal congestion [place] 2 (two) sprays into each nostril once [...] on file Legal Sex Female 11:34 AM ELECTRICAL ENGINEERING DIRECTOR Gender Identity Female 05/15/2023 12:39 PM ELECTRICAL ENGINEERING DIRECTOR Sexual Orientation Bisexual 05/15/2023 12 :39 PM ELECTRICAL ENGINEERING DIRECTOR Last Filed Vital Signs Vital Sign Reading Time Taken Comments Blood Pressure 120/68 06/02/2023 3:37 PM ELECTRICAL ENGINEERING DIRECTOR Pulse 70 06/02/2023 3:37 PM ELECTRICAL ENGINEERING DIRECTOR Temperature 37 C (98.6 F) 06/02/2023 3:37 PM ELECTRICAL ENGINEERING DIRECTOR Respiratory Rate 20 06/02/2023 3:37 PM ELECTRICAL ENGINEERING DIRECTOR Oxygen Saturation 99% 06/02/2023 3:37 PM ELECTRICAL ENGINEERING DIRECTOR Inhaled Oxygen Concentration 96% 10/18/2021 1 0:25 AM CDT Weight 71.2 kg (157 lb) 06/02/2023 3:37 PM ELECTRICAL ENGINEERING DIRECTOR Height 147.3 cm (4' 10) 06/02/2023 3:37 PM ELECTRICAL ENGINEERING DIRECTOR Body Mass Index 32.81 06/02/2023 3:37 PM ELECTRICAL ENGINEERING DIRECTOR Plan of Treatment Health Maintenance Due Date [...] patient's age to complete this topic Insurance [id number] MEDICAID MEDICAID Care Teams Communications Attendant Relationship Specialty Start Date End Date Cammy Green APRN-BUSINESS INTELLIGENCE DIRECTOR [address] [id number] PCP - General Nurse Practitioner Family 03/09/23 Yenni Dey APRN-CNP [address] [place] [address] Nurse Practitioner Family 02/13/23
--- OUTSIDE RECORDS SUMMARY | 2025-05-01 14:50 | XMS_ITS | Clinical Summary ---
Author Organization [facility] lin Address [address] [place] [address] Care Team Providers Care Dietitian Chief Name Role Phone Unavailable Primary Care Provider Unavailabl e Social History Tobacco Use Types Packs/Day Years Used Date Smoking Tobacco: Never Assessed Comments Unknown Sex and Gender Information Value Date Recorded Sex Assigned at Not on file Legal Sex Female 9:23 AM EST Gender Identity Not on file Sexual Orientation Not on file Plan of Treatment Health Maintenance Due Date Last Done Comments Depression: Screening Annual ly using PHQ-2/9 in Adults 18 yrs or above (or HM Modifier)([facility]) 10/05/2015 Hepatitis C Virus Infection in Adolescents and Adults: Screening (or Modifier) ([facility]) 10/05/2015 SDMT Screening Reminder: Norma kenia for all adults ([facility]) 10/05/2015 Tobacco Smoking Cessation: i n Adults excluding Women: Behavioral and Pharmacotherapy Interventions ([facility]) 10/05/2015 DTaP/Tdap/Td Vaccines ([facility]) (1 - Tdap) 2016 Cervical Cancer Screenin 1-65 yrs of age (or Modifier) 2018 Cervical Cancer Screening: P ap every 3 yrs pts age 21-65 2018 Cervical Cancer: Pap Screeni ng with Modifier timing ([facility]) 2018 Cervical Cancer: hrHPV alone or with cotesting Pap for Pts 30-65yrs screening every 5yrs ([facility]) 2018 Flu Vaccination: Yearly for ages 18mos through 64 years (or Modifier)([facility]) 12/09/2024 COVID-19 Vaccine Screening: Initial Series and Booster Status ([facility]) (2024- season) 2025 Zoster/Shingles Vaccine Seri es Screening: Adults aged 18+ yrs (or HM Modifiers)([facility]) (1 of 2) 10/05/2047 Pneumococcal Vaccination Scr eening: Pts 0-19 & 19-49 yrs of age ([facility]) Aged Out No longer eligible based on patient's age to complete this topic Medical Devices Not on file Insurance [facility]
== END 2025-05-01 13:32 | disposition home or self-care (01) ==
PROVIDERS: Emergency Provider Nurse Practitioner Family; PCP Emergency Medicine
DX: J02.0 Streptococcal pharyngitis (principal)
CPT/HCPCS: 87880; 99213; G0463

== ENCOUNTER 2025-05-08 09:04 | Emergency (ER) | payer MEDICAID, SELFPAY ==
--- NOTE | ~2025-05-08 | XR_ITS ---
XR ankle LT min 3V 05/08/2025 10:48 INDICATION: Left ankle pain PROCEDURE: 4 views left ankle COMPARISON: No prior studies for comparison. FINDINGS: Fracture, dislocation or subluxation is not identified. The soft tissues appear within normal limits. No foreign bodies are identified. IMPRESSION: 1: NO ACUTE BONE OR JOINT ABNORMALITY IDENTIFIED. Reviewed, dictated and finalized at location O. OGIST
--- NOTE | ~2025-05-08 | XR_ITS ---
Examination: XR foot LT min 3V Clinical History: pain lateral foot Comparison: None Technique: 4 views left foot Findings/impression: 1. No fracture or dislocation. Reviewed, dictated and finalized at location R. L INSPECTOR
--- OUTSIDE RECORDS SUMMARY | 2025-05-08 09:13 | XMS_ITS | Clinical Summary ---
Author Organization [facility] lin Address [address] [place] [address] Care Team Providers Care Tooth Cutter Pinion Name Role Phone Unavailable Primary Care Provider [...] Adults 18 yrs or above (or HM Modifier)([facility]) 10/05/2015 Hepatitis C Virus Infection in Adolescents and Adults: Screening (or Modifier) ([facility]) 10/05/2015 SDPA Screening Reminder: Norma kenia for all adults ([facility]) 10/05/2015 Tobacco Smoking Cessation: i n Adults excluding Women: Behavioral and Pharmacotherapy Interventions ([facility]) 10/05/2015 DTaP/Tdap/Td Vaccines ([facility]) (1 - Tdap) 2016 Cervical Cancer Screenin 1-65 yrs of age (or Modifier) 2018 Cervical Cancer Screening: P ap every 3 yrs pts age 21-65 2018 Cervical Cancer: Pap Screeni ng with Modifier timing ([facility]) 2018 Cervical Cancer: hrHPV alone or with cotesting Pap for Pts 30-65yrs screening every 5yrs ([facility]) 2018 Flu Vaccination: Yearly for ages 18mos through 64 years (or Modifier)([facility]) 12/09/2024 COVID-19 Vaccine Screening: Initial Series and Booster Status ([facility]) (2024- season) 2025 Zoster/Shingles Vaccine Seri es Screening: Adults aged 18+ yrs (or HM Modifiers)([facility]) (1 of 2) 10/05/2047 Pneumococcal Vaccination Scr eening: Pts 0-19 & 19-49 yrs of age ([facility]) Aged Out No longer eligible based on patient's age to complete this topic Medical Devices Not on file Insurance [facility]
--- OUTSIDE RECORDS SUMMARY | 2025-05-08 09:13 | XMS_ITS | Clinical Summary ---
Author Organization [facility] Address [facility] [place] [address] Care Team Providers Care Audio Visual Manager Name Role Phone Dimitry Boles MD Primary Care Provider [phone] Allergies No known active allergies Medications cetirizine [...] MRSA Comment:03/09/24 +MRSA Nares 03/09/2024 03/09/[address] [facility] MEDICAID Care Teams Audio Visual Manager Relationship Specialty Start Date End Date Dimitry Boles MD [address] [place] [address] PCP - General FAMILY PRACTICE 03/09/24
--- OUTSIDE RECORDS SUMMARY | 2025-05-08 09:13 | XMS_ITS | Clinical Summary ---
Author Organization [facility] Care Team Providers Care Financial Aid Advisor Name Role Phone Unavailable Primary Care Provider Unavailabl e Social History Tobacco Use Types Packs/Day Years Used Date Smoking Tobacco: Never Assessed Comments Unknown Sex and Gender Information Value Date Recorded Sex Assigned at Not on file Legal Sex Female 4:01 PM SUPERVISOR REACTOR FUELING Gender Identity Not on file Sexual Orientation [...]
--- OUTSIDE RECORDS SUMMARY | 2025-05-08 09:13 | XMS_ITS | Clinical Summary ---
Author Organization [facility] Address [address] [place] [address] Care Team Providers Care Hydraulic Press Operator Name Role Phone Cammy Green BUSINESS TECHNOLOGY TEACHER-[employer] Primary C are Provider Yenni Dey BUSINESS TECHNOLOGY TEACHER-[employer] Unavailable [phone] Source Comments [facility],non-owned Affiliates and Associated Physician Practices is amultiple site organization consisting of ambulatory clinics and hospital sitesin [place], [place], [place]. This disclosure is being madepursuant to the Care Everywhere program and may not contain all information available regarding this patient. Last updated 18.[facility] Allergies No known active allergies Medications * This document contains information received from the source organization and may not represent a complete record from that organization. * Be aware that medications may not be up to date on this document. Alwaysverify current medications with the patient. fluticasone propionate (Flonase) 50 MCG/ACT nasal sprayIndications :Nasal congestion [place] 2 (two) sprays into each nostril once [...] on file Legal Sex Female 11:34 AM CORNER BRACE BLOCK MACHINE OPERATOR Gender Identity Female 05/15/2023 12:39 PM CORNER BRACE BLOCK MACHINE OPERATOR Sexual Orientation Bisexual 05/15/2023 12 :39 PM CORNER BRACE BLOCK MACHINE OPERATOR Last Filed Vital Signs Vital Sign Reading Time Taken Comments Blood Pressure 120/68 06/02/2023 3:37 PM CORNER BRACE BLOCK MACHINE OPERATOR Pulse 70 06/02/2023 3:37 PM CORNER BRACE BLOCK MACHINE OPERATOR Temperature 37 C (98.6 F) 06/02/2023 3:37 PM CORNER BRACE BLOCK MACHINE OPERATOR Respiratory Rate 20 06/02/2023 3:37 PM CORNER BRACE BLOCK MACHINE OPERATOR Oxygen Saturation 99% 06/02/2023 3:37 PM CORNER BRACE BLOCK MACHINE OPERATOR Inhaled Oxygen Concentration 96% 10/18/2021 1 0:25 AM CDT Weight 71.2 kg (157 lb) 06/02/2023 3:37 PM CORNER BRACE BLOCK MACHINE OPERATOR Height 147.3 cm (4' 10) 06/02/2023 3:37 PM CORNER BRACE BLOCK MACHINE OPERATOR Body Mass Index 32.81 06/02/2023 3:37 PM CORNER BRACE BLOCK MACHINE OPERATOR Plan of Treatment Health Maintenance Due [...] patient's age to complete this topic Insurance [id number] MEDICAID MEDICAID Care Teams Hydraulic Press Operator Relationship Specialty Start Date End Date Cammy Green APRN-[employer]ER [address] [id number] PCP - General Nurse Practitioner Family 03/09/23 Yenni Dey APRN-CNP [address] [place] [address] Nurse Practitioner Family 02/13/23
[2025-05-08 09:17] VITALS: BP 140/98; PULSE 94; RESP 18; TEMP 36.1; O2SAT 100
--- OUTSIDE RECORDS SUMMARY | 2025-05-08 11:16 | XMS_ITS | Data Portability ---
Author Organization [employer] , [facility] Address [address] [place] [address] Assessment No assessment recorded. 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, [address] [place], [address], 04/11/2024 11:00:47 HPV E6+E7 mRNA, qualitati ve PCR, cervix 2023 024 [facility], [address] [place], [address], 04/12/2024 16:25:12 pap, LB 2023 024 be2 [facility], [address] [place], [address], 04/19/2024 15:56:04 prolactin , serum 2021 022 be2 [facility], [address] [place], [address], 02/27/2022 09:58:00 TSH, serum or plasma 2021 be2 [facility], [address] [place], [address], 02/27/2022 09:58:01 lh + FSH, serum 2021 [facility], [address] [place], [address], 02/27/2022 09:58:01 testoster one, total, serum 2021 be2 [facility], [address] [place], [address], 02/27/2022 09:58:02 testoster one, free, serum 2021 be2 [facility], [address] [place], [address], 02/27/2022 09:58:02 progester one, serum 2021 be2 [facility], [address] [place], [address], 02/27/2022 09:57:59 estradiol , serum 2021 [facility], [address] [place], [address], 02/27/2022 09:58:00 test, urine 2021 [email or web address] [facility], [address], [place], [address], 02/19/2022 16:22:58 CT + NG DNA, PCR, unspecifi ed specimen 2021 [facility], [address] [place] [address], [address], 02/20/2022 09:20:49 unlisted lab - Pap reflex hold 2021 [facility], [address] [facility], [place], [address], 02/20/2022 09:20:45 pap, LB 2021 [place] [facility], [address] [facility], [place], [address], 02/27/2022 09:57:59 Referral reproduct anastasia endocrino logist referral 2023 [facility], [address] [facility], [address], [place], [address], 05/16/2024 13:54:07 Procedures None recorded. Surgeries None recorded. Imaging US, transvagi nal 2021 [facility], [address] [facility], [place], [address], 04/15/2022 13:46:00 Medication Orders Xulane 150 mcg-35 mcg/24 hr transderm al patch 2024 025 [facility], [address] [place], [address], 06/06/2024 15:22:22 Xulane 150 mcg-35 mcg/24 hr transderm al patch 2024 025 [facility], [address] [place], [address], 06/01/2024 11:55:29 Xulane 150 mcg-35 mcg/24 hr transderm al patch 2023 024 [facility], [address] [place], [address], 04/11/2024 11:00:53 Provera 10 mg tablet [address] [id number], [address] [place], [place], [id number], 06/01/2024 11:29:46 Phexxi 1.8 %-1 %-0.4 % vaginal gel 2021 022 [email or web address] [id number], [address] [place], [place], [id number], 06/01/2024 11:29:55 Patient TargetsNo targets recorded. Patient Instructions Encounter Date Encounter Id Patient Instructions Last Modified By Organization Details Last Modified Time 02/19/2022 [id number] A healthy lifestyle: care instructions [id number] Not available 02/19/2022 11:12:59 control counseling [email or web address] Not available 02/19/2022 11:12:59 Reason for Referral [employer] Referral for Premature ovarian failure Referring Physician: Tracie Ochoa, HYDRAULIC PRESS IN OPERATOR, Encounter Date: 04/11/2024 Results Created Date Observation Date Name Description Value Unit Range Abnormal Flag Note LastModifiedBy Organization Detail LastModifiedTime 02/20/2002/19/2022 PAP REFLE X HOLD Pap reflex hold Merged to [id number] Not Available [facility] ol [address] [place], [address], 02/20/2022 09:20:45 02/20/2002/20/2022 PAP REFLE X HOLD Pap reflex hold Receiv ed receiv ed Not Available [facility] [address] [place], [address], 02/20/2022 09:20:49 02/20/2002/20/2022 CT/NG chlamydia trachomatis CT neg negati ve normal This repor t is inten ded for us in clini karen monit oring and manag ement of sanket aviles. It is not inten ded for use in medic al-le gal appli catio n. Not Available [facility] [address] [place], [address], 02/20/2022 13:39:00 02/20/2002/20/2022 CT/NG neisseria gonorrhoeae GC neg negati ve normal This repor t is inten ded for us in clini karen monit oring and manag ement of sanket aviles. It is not inten ded for use in medic al-le gal appli catio n. Not Available [facility] [address] [place], [address], 02/20/2022 13:39:00 02/20/2002/27/2022 THINP REP TIS PAP clinical information: normal None given Not Available [address] [address] [place], [address], 02/27/2022 09:57:59 02/20/2002/27/2022 THINP REP TIS PAP LMP: normal NONE GIVEN Not Available [address] [address] [place], [address], 02/27/2022 09:57:59 02/20/2002/27/2022 THINP REP TIS PAP prev. Pap: normal NONE GIVEN Not Available [address] [address] [place], [address], 02/27/2022 09:57:59 02/20/2002/27/2022 THINP REP TIS PAP prev. BX: normal NONE GIVEN Not Available [address] [address] [place], [address], 02/27/2022 09:57:59 02/20/2002/27/2022 THINP REP TIS PAP source: normal Cervi x Not Available [address] [address] [place], [address], 02/27/2022 09:57:59 02/20/2002/27/2022 THINP REP TIS PAP statement of adequacy: normal Satis facto ry for evalu ation . Endoc ervic al/tr ansfo rmati on zone compo nent prese nt. 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 Sugge st clini karen corre latio n and follo w-up as clini naomi appro priat e Koo porti ons of this case have been revie wed by one or more patho logis ts. Not Available [address], [place], [address], 02/27/2022 09:57:59 02/20/2002/27/2022 THINP REP TIS PAP cytotechnolo gist: normal YQ, CT( CP) CT scree pranay locat ion: [address] [address] [place] [address] Not Available [address] [address] [place], [address], 02/27/2022 09:57:59 02/20/2002/27/2022 THINP REP TIS PAP pathologist: normal Catina trujillo M.D., Board Certi fied in Anato easton Patho logy and Cytop athol ogy. Phone : [phone] (elec troni c signa turmally) Not Available [address] [place], [address], 02/27/2022 09:57:59 02/20/2002/27/2022 THINP REP TIS PAP comment EXPLA NATSANDER Y NOTE: The Pap is a scree [...] clini karen infor matio n. Not Available [address], [address], 02/27/2022 09:57:59 02/20/2002/27/2022 PROGE STERO NE progesterone TNP TEST NOT PERFO RMED No serum recei abdoulaye. Not Available [address], [address], 02/27/2022 09:57:59 02/20/2002/27/2022 PROLA CTIN prolactin TNP TEST NOT PERFO RMED No serum recei abdoulaye. Not Available [address] [place], [address], 02/27/2022 09:58:00 02/20/2002/27/2022 ESTRA DIOL estradiol TNP TEST NOT PERFO RMED No serum recei abdoulaye. Not Available [address], [address], 02/27/2022 09:58:00 02/20/2002/27/2022 TSH W/REF CHARIS TO FT4 TSH w/reflex to FT4 TNP TEST NOT PERFO RMED No serum recei abdoulaye. Not Available [address] [place], [address], 02/27/2022 09:58:01 02/20/20 22 02/27/2022 FSH AND LH FSH TNP TEST NOT PERFO RMED No serum recei abdoulaye. Not Available [facility] [address] [address] [place], [address], 02/27/2022 09:58:01 02/20/20 22 02/27/2022 FSH AND LH LH TNP TEST NOT PERFO RMED No serum recei abdoulaye. Not Available [facility] [address] [address] [place], [address], 02/27/2022 09:58:01 02/20/2002/27/2022 TESTO STERO NE, FREE testosterone , free TNP TEST NOT PERFO RMED No serum recei abdoulaye. Not Available [facility] [address] [address] [place], [address], 02/27/2022 09:58:02 02/20/2002/27/2022 TESTO STERO NE, TOTAL , MS testosterone , total, MS TNP TEST NOT PERFO RMED No serum recei abdoulaye. Not Available [address] [address] [place], [address], 02/27/2022 09:58:02 02/20/2002/19/2022 pregn chano test, urine HCG negati ve Not Available [address], [place], [address], 02/19/2022 11:16:03 03/10/20 22 03/12/2022 PROGE STERO NE progesterone <0.5 NG/mL normal Refer ence Range s Femal e Folli cular Phase < 1.0 Lutea l Phase 2.6-2 1.5 Post menop ausal < 0.5 Pregn chano 1st Trime ster 4.1-3 4.0 2nd Trime ster 24.0- 76.0 3rd Trime ster 52.0- 302.0 Not Available [facility] [address] [place], [address], 03/12/2022 23:56:36 03/10/20 22 03/12/2022 PROLA CTIN prolactin 7.9 NG/mL normal Refer ence Range Femal es Non-p regna nt 3.0-3 0.0 Pregn ant 10.0- 209.0 Postm enopa usal 2.0-2 0.0 Not Available [facility] [address] , [place], [address], 03/12/2022 23:56:37 03/10/20 22 03/12/2022 ESTRA DIOL [...] is recom melina d (orde r code 06467 ). Pleas e note: patie nts being [...] s. [facility] order code 51616 -Estr adiol , Ultra sensi tive LC/MS /MS demon strat es negli gible cross react ivity with fulve stran t. Not Available [facility] [address] [place], [address], 03/12/2022 23:56:37 03/10/20 22 03/12/2022 TSH W/REF CHARIS TO FT4 TSH w/reflex to FT4 0.81 mIU/L normal Refer ence Range > or = 20 Years 0.40- 4.50 Pregn chano Range s First trime ster 0.26- 2.66 Secon d trime ster 0.55- 2.73 Third trime ster 0.43- 2.91 Not Available [facility] [address] [place], [address], 03/12/2022 23:56:38 03/10/20 22 03/12/2022 FSH AND LH FSH 62.3 mIU/m L normal Refer ence Range Folli cular Phase 2.5-1 0.2 Mid-c ycle Peak 3.1-1 7.7 Lutea l Phase 1.5- 9.1 Postm enopa usal 23.0- 116.3 Not Available [facility] [address] [place], [address], 03/12/2022 23:56:38 03/10/20 22 03/12/2022 FSH AND LH LH 18.8 mIU/m L normal Refer ence Range Folli cular Phase 1.9-1 2.5 Mid-C ycle Peak 8.7-7 6.3 Lutea l Phase 0.5-1 6.9 Postm enopa usal 10.0- 54.7 Not Available [facility] [address] [place], [address], 03/12/2022 23:56:38 03/10/20 22 03/12/2022 TESTO STERO [...] purpo ses. F med fusio n [address] [facility] [address] [place] [address] [phone] Manoj lockwood MD Not Available [facility] [address] [place], [address], 03/12/2022 23:56:38 03/10/20 22 03/12/2022 TESTO STERO NE, TOTAL , MS testosterone , total, MS 13 NG/dL 2-45 For addit ional infor jorgito downey e refer to https ://ed ucati on.qu ivanTouchOne Technology/f aq/To Dank amaral MSM S (This link is being provi ded for infor matio nal/e ducat ional purpo ses only. ) (Note ) This test was devel oped and its alexia tical perfo rmanc e sabrina cteri stics have been deter mined by [employer] cher[employer]. It has not been clear ed or appro abdoulaye by the FDA. This assay has been valid ated pursu ant to the CLIA regul ation s and is used for clini karen purpo ses. F med fusio n [address] [facility] [address] [place] [address] [phone] Manoj lockwood MD Not Available [employer] [facility] [address] [place], [address], 03/12/2022 23:56:39 04/11/20 24 04/12/2024 HPV HIGH [...] l cervi karen cytol ogy. Not Available [facility] [address] [place], [address], 04/12/2024 16:25:12 04/11/20 24 04/19/2024 THINP REP TIS PAP clinical information: normal None given Not Available [address] [address] [place], [address], 04/19/2024 15:56:04 04/11/20 24 04/19/2024 THINP REP TIS PAP LMP: normal NONE GIVEN Not Available [address] [place], [address], 04/19/2024 15:56:04 04/11/20 24 04/19/2024 THINP REP TIS PAP prev. Pap: normal NONE GIVEN Not Available [address] [place], [address], 04/19/2024 15:56:04 04/11/20 24 04/19/2024 THINP REP TIS PAP prev. BX: normal NONE GIVEN Not Available [address] [address] [place], [address], 04/19/2024 15:56:04 04/11/20 24 04/19/2024 THINP REP TIS PAP source: normal Cervi x Not Available [address] [address] [place], [address], 04/19/2024 15:56:04 04/11/20 24 04/19/2024 THINP REP TIS PAP statement of adequacy: normal SATIS FACTO RY FOR EVALU ATION Parti ally obscu ring infla mmati on Not Available [address] [address] [place], [address], 04/19/2024 15:56:04 04/11/20 24 04/19/2024 THINP REP TIS PAP interpretati on/result: Cytol ogy Resul ts: Negat anastasia for intra epith elial lesio n or maltammy bañuelos . Atrop amelie barkley rn; predo sabine blankenship parab carli cells Not Available [address] [address] [place], [address], 04/19/2024 15:56:04 04/11/20 24 04/19/2024 THINP REP TIS PAP comment: normal This Pap test has been evalu ated with compu ter stephen maldonado techn ology . Not Available [address] [address] [place], [address], 04/19/2024 15:56:04 04/11/20 24 04/19/2024 THINP REP TIS PAP cytotechnolo gist: normal PCM, CT( CP) CT Scree pranay Locat ion: [address] [address] [place] [address] Not Available [address], [place], [address], 04/19/2024 15:56:04 04/11/20 24 04/19/2024 THINP REP [...] clini karen infor matio n. Not Available [address] [address] [place], [address], 04/19/2024 15:56:04 04/11/20 24 04/11/2024 pregn chano test, urine HCG negati ve Not Available [facility] [address], [place], [address], 04/10/2024 18:37:49 06/01/19 25 06/03/2024 VAGIN ITIS PANEL bacterial vaginosis BV neg negati ve normal Not Available [address], [address], 06/03/2024 16:30:54 06/01/19 25 06/03/2024 VAGIN ITIS PANEL marjorie species C. spp POS negati ve abnormal Not Available [address], [address], 06/03/2024 16:30:54 06/01/19 25 06/03/2024 VAGIN ITIS PANEL marjorie glabrata C. gla neg negati ve normal Not Available [address], [address], 06/03/2024 16:30:54 06/01/19 25 06/03/2024 VAGIN ITIS PANEL trichomonas vaginalis CV/TV TRICH neg negati ve normal Not Available [address], [address], 06/03/2024 16:30:54 04/15/20 22 04/14/2022 US pelvi c non OB comp ta+TV [facility] [place] [address] [facility] [address] [place] [id number] EXAMIN ATION: Comple te pelvic sonogr am [...] s observ ed. Ordere d By: SUNITA FREEMAN Electr onical ly Signed By: Cuong Gómez MD on 9:36 AM Interp reted By: Cuong Gómez MD, 9:30 AM [email or web address], [address], 04/16/2022 12:06:26 04/15/2004/14/2022 US, trans vagin al No observ ation record ed. [email or web address] [address], [address], 04/16/2022 12:08:19 Result Notes None recorded. Problems No Known Problems Procedures Surgical History Date Name Laterality Status Provider Name and Address Organization Details Recorded Time Date of Last Pap Smear completed DAMARIS Gonzalez [address] [facility], [place], [address], [place] Anonymous You - [facility] 05/09/2024 08:35:21 Removal of tonsils completed Jacqueline Dorado Anonymous You - [facility] 02/19/2022 11:02:00 procedure on external ear completed Justin Anderson Anonymous You - [facility] 06/01/2024 11:32:13 Imaging Results None recorded. [...] Available Not Available Not Available prednison e 10 mg tablet TAKE 1 TABLET BY MOUTH TWICE DAILY active Not Available Not Available No t Available trazodone 50 mg tablet TAKE 1 [...] completed Not Available Not Available Not Available hydrocodo ne-homatr opine 5 mg-1.5 mg/5 mL oral solution TAKE 5 ML BY MOUTH 4 TIMES DAILY NEEDED FOR COUGH FOR UP TO 3 DAYS active Not Available Not Available No t Available hydroxyzi ne HCl 25 mg tablet TAKE 1 TABLET BY MOUTH THREE TIMES DAILY NEEDED FOR ANXIETY 06/01 completed Not Available Not Available Not Available methylpre dnisolone 4 mg tablets in a dose pack 04/11 completed Not Available Not Available Not Available ondansetr on 4 mg disintegr ating tablet DISSOLVE 1 TABLET IN MOUTH EVERY 8 HOURS NEEDED FOR NAUSEA AND VOMITING active Not Available Not Available No t Available fluoxetin e 20 mg capsule TAKE 1 CAPSULE BY MOUTH ONCE DAILY active Not Available Not Available No t Available fluticaso ne propionat e 50 mcg/actua tion nasal spray,[place] pension USE 1 SPRAY(S) IN EACH NOSTRIL ONCE DAILY active Not Available Not Available No t Available naproxen 500 mg tablet 06/01 completed Not Available Not Available Not Available amoxicill in 875 mg-potass ium clavulana te 125 mg tablet TAKE 1 TABLET BY MOUTH EVERY 12 HOURS FOR 7 DAYS 05/06 completed Not Available Not Available Not Available escitalop noah 10 mg tablet TAKE 1 TABLET BY MOUTH EVERY DAY 06/01 completed Not Available Not Available Not Available cyclobenz aprine 5 mg tablet TAKE 1 TABLET BY MOUTH THREE TIMES DAILY active Not Available Not Available No t Available Xulane 150 mcg-35 mcg/24 hr transderm al patch APPLY 1 PATCH TO SKIN ONCE EVERY WEEK DIRECTED active Not Available Not Available No t Available Phexxi 1.8 %-1 %-0.4 % vaginal gel Insert 1 applicat orful by vaginal route. 06/01 completed Not Available Not Available Not Available Vitals Date Recorded Body height Body mass index (BMI) Body weight Systolic And Diastolic Provider Name and Address Organization Details Last Updated DateTime 06/01/2024 147.32 cm 30.8 kg/m2 07363.52 g 100/70 mm[Hg] Justin Anderson [facility] 06/01/2024 11:24:55 Date Recorded Body height Body mass index (BMI) Body weight Systolic And Diastolic Provider Name and Address Organization Details Last Updated DateTime 06/06/2024 147.32 cm 31.3 kg/m2 99781.86 g 120/76 mm[Hg] [facility] 06/06/2024 14:49:44 Date Recorded Body weight Body mass index (BMI) Body height Systolic And Diastolic Provider Name and Address Organization Details Last Updated DateTime 02/19/2022 54718 g 32.8 kg/m2 147.32 cm 118/74 mm[Hg] [facility] 02/19/2022 10:59:13 Date Recorded Body height Body mass index (BMI) Body weight Systolic And Diastolic Provider Name and Address Organization Details Last Updated DateTime 04/11/2024 147.32 cm 29.8 kg/m2 05126.99 g 118/72 mm[Hg] [facility] 04/11/2024 10:40:35 Date Recorded Body height Body mass index (BMI) Body weight Systolic And Diastolic Provider Name and Address Organization Details Last Updated DateTime 04/28/2022 147.32 cm 33 kg/m2 65852.59 g 116/68 mm[Hg] [facility] 04/28/2022 14:41:00 Social History Question Answer Notes LastModified by Organizat ion Details LastModified Time How Many Children Do You Have? 0 [email or web address] Information not available 02/19/2022 What Is Your Relationship Status? Single Information not available 02/19/2022 Are You Sexually Active? Yes [email or web address] Information not available 02/19/2022 Sex: Unknown Functional Status None recorded. Mental Status None recorded. Family History Relationship Description Onset Age of this Age Resolved Age Notes LastModified by Organization Details LastModified Time Maternal Grandmother Malignant neoplasm of breast [email or web address] Not available 02/19 11:01:35 Medical History Condition Response Other Cancer N High Blood Pressure N Colon Cancer N Cytomegalovirus N Hyperthyroidism N Blood Transfusion N MRSA Y Herpes (HSV) N Breast Cancer N Lung Cancer N Hypothyroidism N Depression Y Incontinence N Panic Attacks N Neurological Disorder N Deep Vein Thrombosis N Anxiety Disorder Y Autoimmune disease N Arthritis N Shingles N Tuberculosis/Positive PPD N Infertility N Polycystic Ovarian Syndrome N Cervical Cancer N Chlamydia N Hematuria N Stroke N Varicosities N Seasonal allergies N Crohn's Disease N Alzheimer's/Dementia N COPD/Emphysema N Endometriosis N HPV/Genital Warts N IBS (Irritable Bowel Syndrome) N History of Abnormal Pap N High Cholesterol Y Liver Disease N Kidney Infection N Fibromyalgia N Ulcer N Kidney Disease N HIV N Gallbladder disease N Von Willebrand disease N Sickle Cell Disease/Trait N ADD/ADHD N Eating Disorder N Diabetes Mellitus (non-insulin dependent ) N Anemia N Ovarian Problems N Multiple Sclerosis N Gonorrhea N Frequent Urinary Tract infections N Osteopenia N Headaches/migraines N GERD (reflux) N Ovarian Cancer N Diabetes (insulin dependent) N Seizures/Epilepsy N Breast Problems N Fibroids N Asthma N Heart Attack N Endometrial Cancer N Lupus N Rubella N Blood Clotting Disorder N [...] ICD10 Code Diagnosis IMO Codes Diagnosis Note [id number] Sunitajason FreemanDAMARIS [address] [address] 02/19/2022 10:55:17 02/19/2022 11:25:10 Gynecologic examination 48287975 Z01.419 26y.o. here for annual exam. - [...] reviewed Screening for malignant neoplasm of cervix 142036477 Z12.4 Surveillan ce of contraception 748075867 Z30.40 She is agreeable to Phexxi use. She is aware only 93% effective and to use condoms in addition Amenorrhea 47651631 N91. 0 N91.1 Z32.00 Discussed amenorrhea in detail with patient. Provera rx'd. Instructed patient to call if no cycle 2 weeks after use. Will develop further plan of care depending on lab and ultrasound results. [id number] Rola Charles MD [facility] [address] [place] [address] 04/28/2022 14:18:48 04/28/2022 15:06:40 Primary amenorrhea 159106571 N91.0 pt left without being seen, had family emergency. will need to reschedule [id number] DAMARIS Gonzalez [facility] [address] [place] [address] 04/11/2024 10:27:17 04/11/2024 14:11:41 Premature ovarian failure 352260174 E28.39 [id number] Pt educated on dx and limitation of [...] face counseling . Prescripti on of contraception 868106452 Z30.016 [id number] Pt educated on risks Vs benefits of [...] WWE. Screening for malignant neoplasm of cervix 392237495 Z12.4 ASCCP guidelines reviewed with pt. Pap collected and sent. Further POC pending lab result review. Pt states understand ing of POC. [id number] DAMARIS Gonzalez [facility] [address] [place] [address] 06/06/2024 14:45:53 06/06/2024 16:31:55 Premature ovarian failure 077433055 E28.39 [id number] Pt educated on dx and limitation of [...] was in face to face counseling . [id number] Mary Reis is, [facility] h [address] [place] [address] 06/01/2024 11:18:53 06/01/2024 12:17:50 Prescription of contraception 442595295 Z30.019 menorrhagi a discussed options for 12 vs 3 weeks of wearing patch. Desires to wear for 12 weeks and skip periods Vaginitis 16856755 N76.0 vaginal discharge for 2 days no itching or burning or foul odor Health Concerns Section Related Observation LastModified by Organization Detai ls LastModified Time None Recorded Concern Status LastModified by Organization Details LastModified Time None Recorded Advance Directives Directive None Recorded Payers Insurance Date Sequence Insurance Name Policy Number Policy Messer Covered Member ID Messer Member ID Guarantor Name 05/08/2025 1 [facility] - DOS PRIOR TO 2024 (MEDICAID REPLACEMENT - HMO) [id number] Radha Tsai [id number] Radha Tsai 05/08/2025 1 [place] Radha Tsai [id number] Radha Tsai 05/08/2025 1 [facility] - DOS ON OR AFTER 2024 (MEDICAID REPLACEMENT - HMO) Radha Tsai [id number] Radha Tsai Notes Date Note Type Note [...] She does have hirsutism. DAMARIS Weiss [address] [facility], [place], [address], [facility] [employer] IV 02/19/2022 16:23:45 2 text/html Radha is a 26 yr old G0 who is being evaluated for amenorrhea. (primary). She came into see Sunita and she gave a course of progesterone, she did not have bleeding.Labs were done: testosterone, FSH and LH, estradiol, progesterone, prolactin, TSH Pap abnormal on 02/19/2022 ANGIE Charles MD [address] [facility], [place], [address], [facility] [employer] 04/28/2022 15:38:37 4 text/html ROS as [...] has no other concerns. DAMARIS Gonzalez [address] [facility], [place], [address], [facility] [employer] 04/11/2024 13:22:13 5 text/html Radha is [...] refill on patches. Mary Apodaca CNM [address] [facility], [place], [address], [facility] [employer] 06/01/2024 11:55:58 5 text/html Pt presents with [...] next year. Pt has no other concerns. Tracie Ochoa, DAMARIS [address] [facility], [place], [address], [facility] 06/06/2024 15:26:10 OBGyn Episode Ob Episode Information Episode Created Date Number of Fetuses Patient Bloodtype Patient rh Status Prepregnancy Weight lbs Domestic Partner Domestic Partner Phone Father Name Marketing Support Specialist Status 06/01/19 25 1 CLOSED Fetus Data First Name Last Name Admitted to NICU Weight (g) Sex Living Outcome Pediatric Complications Fetus ID Race Codes Race Delivery Type , Spontane ous [id number] Suleiman Calculation Initial Suleiman Date Initial Exam [...]
--- OUTSIDE RECORDS SUMMARY | 2025-05-08 11:16 | XMS_ITS | Clinical Summary ---
Author Organization [facility] lin Address [address] [place] [address] Care Team Providers Care Email Manager Name Role Phone Unavailable Primary Care Provider [...] Adults 18 yrs or above (or HM Modifier)([facility]) 10/05/2015 Hepatitis C Virus Infection in Adolescents and Adults: Screening (or Modifier) ([facility]) 10/05/2015 SDAR Screening Reminder: Norma kenia for all adults ([facility]) 10/05/2015 Tobacco Smoking Cessation: i n Adults excluding Women: Behavioral and Pharmacotherapy Interventions ([facility]) 10/05/2015 DTaP/Tdap/Td Vaccines ([facility]) (1 - Tdap) 2016 Cervical Cancer Screenin 1-65 yrs of age (or Modifier) 2018 Cervical Cancer Screening: P ap every 3 yrs pts age 21-65 2018 Cervical Cancer: Pap Screeni ng with Modifier timing ([facility]) 2018 Cervical Cancer: hrHPV alone or with cotesting Pap for Pts 30-65yrs screening every 5yrs ([facility]) 2018 Flu Vaccination: Yearly for ages 18mos through 64 years (or Modifier)([facility]) 12/09/2024 COVID-19 Vaccine Screening: Initial Series and Booster Status ([facility]) (2024- season) 2025 Zoster/Shingles Vaccine Seri es Screening: Adults aged 18+ yrs (or HM Modifiers)([facility]) (1 of 2) 10/05/2047 Pneumococcal Vaccination Scr eening: Pts 0-19 & 19-49 yrs of age ([facility]) Aged Out No longer eligible based on patient's age to complete this topic Medical Devices Not on file Insurance [facility]
--- OUTSIDE RECORDS SUMMARY | 2025-05-08 11:16 | XMS_ITS | Clinical Summary ---
Author Organization [facility] Address [facility] [address] [place] [address] Care Team Providers Care Educational Institution Curator Name Role Phone Dimitry Boles MD Primary Care Provider [phone] Allergies No known active allergies Medications cetirizine [...] MRSA Comment:03/09/24 +MRSA Nares 03/09/2024 03/09/2024 Insurance [facility] MEDICAID Care Teams Educational Institution Curator Relationship Specialty Start Date End Date Dimitry Boles MD [address] [place] [address] PCP - General FAMILY PRACTICE 03/09/24
--- OUTSIDE RECORDS SUMMARY | 2025-05-08 11:16 | XMS_ITS | Clinical Summary ---
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
--- OUTSIDE RECORDS SUMMARY | 2025-05-08 11:16 | XMS_ITS | Clinical Summary ---
Author Organization [facility] Address [address] [place] [address] Care Team Providers Care Asset Protection Representative Name Role Phone Cammy Green MEMBERSHIP DIRECTOR-PRODUCTION UNDERWRITER Primary C are Provider Yenni Dey MEMBERSHIP DIRECTOR-PRODUCTION UNDERWRITER Unavailable [phone] Source Comments [facility],non-owned Affiliates and Associated Physician Practices is amultiple site organization consisting of ambulatory clinics and hospital sitesin [place], [place], [place] and [place]. This disclosure is being madepursuant to the Care Everywhere program and may not contain all information available regarding this patient. Last updated 18.[facility] Allergies No known active allergies Medications * This document contains information received from the source organization and may not represent a complete record from that organization. * Be aware that medications may not be up to date on this document. Alwaysverify current medications with the patient. 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 Gender Identity Female 05/15/2023 12:39 PM ED EDUCATIONAL AIDE Sexual Orientation Bisexual 05/15/2023 12 :39 PM ED EDUCATIONAL AIDE Last Filed Vital Signs Vital Sign Reading Time Taken Comments Blood Pressure 120/68 06/02/2023 3:37 PM ED EDUCATIONAL AIDE Pulse 70 06/02/2023 3:37 PM ED EDUCATIONAL AIDE Temperature 37 C (98.6 F) 06/02/2023 3:37 PM ED EDUCATIONAL AIDE Respiratory Rate 20 06/02/2023 3:37 PM ED EDUCATIONAL AIDE Oxygen Saturation 99% 06/02/2023 3:37 PM ED EDUCATIONAL AIDE Inhaled Oxygen Concentration 96% 10/18/2021 1 0:25 AM CDT Weight 71.2 kg (157 lb) 06/02/2023 3:37 PM ED EDUCATIONAL AIDE Height 147.3 cm (4' 10) 06/02/2023 3:37 PM ED EDUCATIONAL AIDE Body Mass Index 32.81 06/02/2023 3:37 PM ED EDUCATIONAL AIDE Plan of Treatment Health Maintenance Due Date [...] patient's age to complete this topic Insurance [id number] MEDICAID MEDICAID Care Teams Asset Protection Representative Relationship Specialty Start Date End Date Cammy Green APRN-PRODUCTION UNDERWRITER [address] [address] PCP - General Nurse Practitioner Family 03/09/23 Yenni Dey APRN-CNP [address] [place] [address] Nurse Practitioner Family 02/13/23
--- NOTE | 2025-05-08 11:21 | ED.LOWEXIN ---
HPI - Extremity Injury (Lower) General Chief Complaint: Extremity Injury, Lower Stated Complaint: Left ankle pain for 2 weeks Time Seen by Provider: 05/08/25 10:12 Source: patient Mode of arrival: ambulatory Limitations: no limitations History of Present Illness HPI Narrative: Patient is a 29-year-old female who presents the ED with report of left ankle pain. Patient reports having pain for the past 2 weeks after tripping and rolling her ankle. Has pain with bearing weight. Notes she has to be up on ladders frequently at work. States the pain radiates into her foot. Denies numbness. Denies any other injuries. Related Data Home Medications ?Medication ?Instructions ?Recorded ?Confirmed ?Last Taken ?Type norelgestromin 150 mcg-e.estradiol patch 03/10/25 Unknown History 35 mcg/24 hr weekly transderm patch (Zafemy) Allergies Allergy/AdvReac Type Severity Reaction Status Date / Time No Known Allergies Allergy Verified 05/08/25 11:49 Review of Systems Review of Systems: All systems reviewed & are unremarkable except as noted in HPI. All systems reviewed & are unremarkable except as noted in HPI and below Exam Narrative: GENERAL: Well appearing, obese with BMI of 33.4, non-toxic, in no acute distress. HEAD: Normocephalic, atraumatic. RESPIRATORY: Airway patent, respirations nonlabored. CARDIOVASCULAR: Regular rate and rhythm. Pedal pulses intact and easily palpable MUSCULOSKELETAL: Moves all extremities. No gross deformities. Slight swelling and tenderness to palpation along lateral malleoli/anterior lateral dorsal foot. Mild tenderness to palpation along 5th MTP region. Sensation intact. SKIN: Warm, dry, normal color. NEURO: A&O X3. Speech clear. Cranial nerves II-XII grossly intact. No ataxic movements. PSYCHIATRIC: Appropriate mood and affect. Normal interaction. Course Vital Signs Vital signs: Vital Signs Temperature 97.0 F L 05/08/25 09:17 Pulse Rate 94 05/08/25 09:17 Respiratory Rate 18 05/08/25 09:17 Blood Pressure 140/98 H 05/08/25 09:17 Pulse Oximetry 100 05/08/25 09:17 Oxygen Delivery Room Air 05/08/25 09:17 Temperature 98.6 F 05/08/25 11:41 Pulse Rate 87 05/08/25 11:41 Respiratory Rate 14 05/08/25 11:41 Blood Pressure 133/75 05/08/25 11:41 Pulse Oximetry 100 05/08/25 11:41 Oxygen Delivery Room Air 05/08/25 11:41 MDM MDM Narrative Medical decision making narrative: Patient?s injury is consistent with musculoskeletal etiology. No signs of neurologic or vascular compromise on physical examination. Compartments are soft without signs of compartment syndrome. XR of left foot and ankle negative. Pain is consistent with ankle sprain. Patient is felt to be stable for discharge home and further outpatient management and treatment. Will provide orthopedic information for follow-up if needed. Discussed rice therapy. Given Gorge bandage. Given work note. Discussed return precautions. Discharged in stable condition. Differential Diagnosis Differential Diagnosis: Ankle sprain, ankle fracture, foot fracture Medical Records I have reviewed the following patient records and this information was taken into consideration when formulating the assessment and plan.: previous labs, previous ER visits, previous hospitalizations and previous clinic visits Imaging Data Attestation: I personally reviewed and interpreted this imaging study as follows: Radiologist's impression: ITS Impressions Ankle X-Ray 05/08/25 10:53 IMPRESSION: 1: NO ACUTE BONE OR JOINT ABNORMALITY IDENTIFIED. Discharge Plan Discharge Clinical Impression: Sprain of left ankle Qualifiers: Encounter type: initial encounter Involved ligament of ankle: unspecified ligament Qualified Code(s): S93.402A - Sprain of unspecified ligament of left ankle, initial encounter Patient Disposition: Home Condition: Stable Instructions: Antibiotic Form, Ankle Sprain (ED), P.R.I.C.E. Treatment (ED) Additional Instructions: Your imaging did not show any evidence of fracture. You likely sprained your ankle. Utilize Gorge bandage for compression and support. Recommend Tylenol/ibuprofen as needed for pain. You may follow-up with orthopedics for further evaluation if needed. Call office to make appointment. Return for new or worsening concerns. Patient Language: Slovenian Prescriptions: No Action norelgestromin-ethin.estradiol [Zafemy] 150-35 mcg/24 hr patch weekly amoxicillin-pot clavulanate 875-125 mg tablet 1 tablet PO Q12H Qty: 14 0RF prednisone 10 mg tablet 10 mg PO BID Qty: 10 0RF Follow-up/Referrals: Dimitry Boles MD [Primary Care Provider, Family Practice] Lobo Judd MD [Physician, Orthopedics] Referral Note: ORTHOPEDICS Stand Alone Forms: Work/School Release IP Time of Disposition: 11:26
[2025-05-08 11:41] VITALS: BP 133/75; PULSE 87; RESP 14; TEMP 37; O2SAT 100
== END 2025-05-08 12:34 | disposition home or self-care (01) ==
PROVIDERS: Emergency Provider Physician Assistant; PCP Emergency Medicine
DX: S93.402A Sprain of unspecified ligament of left ankle, initial encounter (principal); X50.0XXA Overexertion from strenuous movement or load, initial encounter
CPT/HCPCS: 73610; 73630; 99283